=== PATIENT | male | born 1980 | race Caucasian/White ===

== ENCOUNTER 2016-09-27 19:49 | Emergency (ER) | payer MEDICAID ==
--- NOTE | 2016-09-27 20:56 | ER Document Report ---
ED General - General Mode of Arrival: Ambulatory Information source: Patient TRAVEL OUTSIDE OF THE [place] IN LAST 30 DAYS: No <ANNMARIE LUNDBERG - Last Filed: 09/27/16 23:08> <GRAEME JEAN - Last Filed: 09/28/16 00:32> - General Chief Complaint: Skin Problem Stated Complaint: POSSIBLE ABSCESS Time Seen by Provider: 09/27/16 20:30 Notes: Patient is a 36-year-old male who presents with hard lump in his right distal bicep that started 2 days ago. He endorses pain and swelling that has worsened since he first noticed it. He told the nurse he has a history of donating plasma but denies any IV drug use. He denies any fever, chills, chest pain, SOB , dyspnea on exertion, lower extremity edema or pain. He has no prior history of DVT/PE, is a smoker and denies any recent prolonged travel or surgeries. He has not tried any medication for this pain. No prior medical history, currently not taking any medications. (ANNMARIE LUNDBERG) - Related Data Allergies/Adverse Reactions: No Known Allergies Allergy (Verified 09/27/16 21:55) Past Medical History - General Information source: Patient - Social History Smoking Status: Current Every Day Smoker Chew tobacco use (# tins/day): No Frequency of alcohol use: Rare Drug Abuse: None Patient has suicidal ideation: No Patient has homicidal ideation: No - Past Medical History Cardiac Medical History: Denies: Hx Coronary Artery Disease, Hx Heart Attack, Hx Hypertension Pulmonary Medical History: Denies: Hx Asthma, Hx Bronchitis, Hx COPD, Hx Pneumonia Neurological Medical History: Denies: Hx Cerebrovascular Accident, Hx Seizures Renal/ Medical History: Denies: Hx Peritoneal Dialysis Musculoskeltal Medical History: Denies Hx Arthritis - Immunizations Hx Diphtheria, Pertussis, Tetanus Vaccination: Yes <ANNMARIE LUNDBERG - Last Filed: 09/27/16 23:08> - Social History Family History: Reviewed & Not Pertinent <GRAEME JEAN - Last Filed: 09/28/16 00:32> Review of Systems - Review of Systems Constitutional: See HPI EENT: No symptoms reported Cardiovascular: No symptoms reported Respiratory: No symptoms reported Gastrointestinal: No symptoms reported Genitourinary: No symptoms reported Male Genitourinary: No symptoms reported Musculoskeletal: See HPI Skin: See HPI Hematologic/Lymphatic: No symptoms reported Neurological/Psychological: No symptoms reported <MARLYN LUNDBERGISTEN - Last Filed: 09/27/16 23:08> Physical Exam <MARLYN LUNDBERGISTEN - Last Filed: 09/27/16 23:08> <GRAEME JEAN - Last Filed: 09/28/16 00:32> - Vital signs Vitals: Temp Pulse Resp BP Pulse Ox 97.9 F 65 18 121/75 98 09/27/16 20:07 09/27/16 20:07 09/27/16 20:07 09/27/16 20:07 09/27/16 20:07 - Notes Notes: PHYSICAL EXAM: CONSTITUTIONAL: Alert and oriented, well-appearing and in no acute distress. HENT: Normocephalic, atraumatic. Trachea midline. Uvula midline. Moist mucous membranes. EYES: Pupils equal round and reactive to light, EOM intact. Sclera anicteric, conjunctiva are normal. No entrapment. NECK: supple without lymphadenopathy. No midline tenderness or paraspinous muscle spasms. No step-offs or deformities. ROM intact. HEART: Regular rate and rhythm without murmurs. LUNGS: CTAB and equal. No wheezes, rales or rhonchi. GI: Normactive bowel sounds. Nontender, non-distended. No organomegaly. no CVAT. BACK: nontender, no paraspinous spasm, 5+/5 strengths, DTRs 2+, SLR -. EXTREMITIES: Right upper arm - tender palpable chord to left medial surface of bicep with warmth but no erythema. No streaking noted. Normal range of motion, no pitting edema. No cyanosis. Cap Refill <3 seconds. Distal pulses intact. NEURO: Cranial nerves grossly intact. Normal sensory/motor exams. PSYCH: Normal mood, normal affect. SKIN: Warm and dry. Normal turgor. No rashes or lesions noted. (ANNMARIE LUNDBERG) Course <MARLYN LUNDBERGISTEN - Last Filed: 09/27/16 23:08> <GRAEME JEAN - Last Filed: 09/28/16 00:32> - Re-evaluation Re-evalutation: 09/27/16 23:00 patient seen and examined. approximately 3 cm palpable chord with exquisite tenderness and warmth on exam without erythema. With history of plasma donation , concern for phlebitis vs lymphadenopathy vs SVT/DVT. Ordered venous doppler - results pending. 09/27/16 23:09 Discussed case and management to this point with Gloria Narvaez PERINATAL TECH in sign out at end of my shift. Patient updated and notified of plan. (ANNMARIE LUNDBERG) 09/28/16 00:31 Vascular Doppler showed a traumatic AV fistula. Dr. Gloria will follow up with the patient. Patient was discharged home with prescription for [place] dispense pack and instructions to follow-up with Dr. Gloria. He was also given a light duty work note until following up with surgery. 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 He will be discharged home with a small prescription for pain medicine and instructions to follow-up with Dr. Gloria a vascular surgeon. Oral Narcotic Medication You have been given a prescription for pain control. This medication is a narcotic. It's best taken with food, as nausea can result if taken on an empty stomach. Don't operate machinery or drive within six hours of taking this medication. Do not combine this medicine with alcohol, or with any medication which can cause sedation (such as cold tablets or sleeping pills) unless you get permission from the physician. Narcotics tend to cause constipation. If possible, drink plenty of fluids and eat a diet high in fiber and fruits. FOLLOW-UP CARE: If you have been referred to a physician for follow-up care, call the physician s office for an appointment as you were instructed or within the next two days. If you experience worsening or a significant change in your symptoms, notify the physician immediately or return to the Emergency Department at any time for re-evaluation. Prescriptions: Hydrocodone/Acetaminophen [[place] 5-325 mg Tablet] 1 tab PO Q6HP PRN #14 tablet PRN Reason: Forms: Special Work Note, Smoking Cessation Education Referrals: ALETHA JUAREZ MD [Primary Care Provider] - Follow up as needed MINA GLORIA MD [ACTIVE STAFF] - Follow up as needed
[2016-09-28] MEDS ORDERED: HYDROCODONE/ACETAMINOPHEN 5-325 MG 6 TAB/DSPK PO PRN (00:30)
[2016-09-28 00:38] VITALS: BP 127/91
--- NOTE | 2016-09-28 09:02 | XCELERA REPORT ---
[address] [address] Upper Extremity Venous Evaluation Name: ELIZ TORRES Age: 36 yrs Gender: Male : 1980 Patient Status: Emergency Patient Location: ER Study Date: 09/27/2016 10:21 PM Procedure: Unilateral duplex scan of the right upper extremity veins was performed, including responses to compression and other maneuvers. Reason For Study: r/o DVT, superficial VT Ordering Physician: ANNMARIE LUNDBERG PA-C Performed By: Anthony Craig Right Side Venous Evaluation No obstruction or thrombus in the right upper extremity veins. A thrombosed area, 1.3 cms, connecting by a 7mm neck with he Brachial. Also noted is arterialized pulsatile flow in the Basilic vein. Critical Findings D/W CHRISTEN Edward. Interpretation Summary Negative for DVT in the right upper extremity. 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 : ANNMARIE LUNDBERG PA-C > Jett Mota
== END 2016-09-28 00:36 | disposition home or self-care (01) ==
LOC: ER 19:49
DX: S45.891A Other specified injury of other specified blood vessels at shoulder and upper arm level, right arm, initial encounter (principal); L02.413 Cutaneous abscess of right upper limb; M79.89 Other specified soft tissue disorders; F17.200 Nicotine dependence, unspecified, uncomplicated; X58.XXXA Exposure to other specified factors, initial encounter
CPT/HCPCS: 93971; 99284

== ENCOUNTER 2017-02-03 11:34 | Emergency (ER) | payer MEDICAID ==
[2017-02-03] MEDS ORDERED: KETOROLAC TROMETHAMINE INJ/PF 30 MG/1 ML SDV IV ONE (11:58)
[2017-02-03] MEDS ORDERED: ONDANSETRON HCL INJ/PF 4 MG/2 ML SDV IV ONE (11:58)
[2017-02-03] MEDS ORDERED: MORPHINE SULFATE 10 MG/ML INJ IV ONE ×2 (11:58→14:11)
--- NOTE | 2017-02-03 11:58 | ER Document Report ---
ED Medical Screen (RME) - General Chief Complaint: Abdominal Pain Stated Complaint: ABDOMINAL PAIN Time Seen by Provider: 02/03/17 11:52 Notes: The patient is a 36-year-old male who presents with 1 week of diffuse abdominal pain and nausea, worse in the left upper quadrant, right upper quadrant and right lower quadrant. He is also having intermittent episodes of diarrhea and constipation. No prior abdominal surgeries. PE: Uncomfortable. Normal bowel sounds. Diffuse abdominal tenderness. I have greeted and performed a rapid initial assessment of this patient. A comprehensive ED assessment and evaluation of the patient, analysis of test results and completion of the medical decision making process will be conducted by additional ED providers. TRAVEL OUTSIDE OF THE [place] IN LAST 30 DAYS: No - Related Data Allergies/Adverse Reactions: No Known Allergies Allergy (Verified 02/03/17 11:42) Past Medical History - Social History Chew tobacco use (# tins/day): - 30 Frequency of alcohol use: None Drug Abuse: None - Past Medical History Cardiac Medical History: Denies: Hx Coronary Artery Disease, Hx Heart Attack, Hx Hypertension Pulmonary Medical History: Denies: Hx Asthma, Hx Bronchitis, Hx COPD, Hx Pneumonia Neurological Medical History: Denies: Hx Cerebrovascular Accident, Hx Seizures Renal/ Medical History: Denies: Hx Peritoneal Dialysis Musculoskeltal Medical History: Denies Hx Arthritis - Immunizations Hx Diphtheria, Pertussis, Tetanus Vaccination: Yes Physical Exam - Vital signs Vitals: Temp Pulse Resp BP Pulse Ox 98.6 F 68 16 136/88 H 97 02/03/17 11:40 02/03/17 11:40 02/03/17 11:40 02/03/17 11:40 02/03/17 11:40 Course - Vital Signs Vital signs: Temp Pulse Resp BP Pulse Ox 98.6 F 68 16 136/88 H 97 02/03/17 11:40 02/03/17 11:40 02/03/17 11:40 02/03/17 11:40 02/03/17 11:40
[2017-02-03 12:31] LABS: ABSOLUTE EOSINOPHILS # (AUTO) 0.1 10^3/uL (0.0-0.6); ABSOLUTE LYMPHOCYTES (AUTO) 1.6 10^3/uL (0.5-4.7); ABSOLUTE MONOCYTES (AUTO) 0.4 10^3/uL (0.1-1.4); ABSOLUTE NEUT (AUTO) 4.1 10^3/uL (1.7-8.2); BASOPHILS % (AUTO) 0.2 % (0-2); EOSINOPHILS % (AUTO) 1.1 % (0-6); HEMATOCRIT 41.7 % (37.9-51.0); HEMOGLOBIN 14.3 g/dL (13.5-17.0); HGB HCT DIFFERENCE 1.2; LYMPHOCYTES % (AUTO) 26.6 % (13-45); MEAN CORPUSCULAR HEMOGLOBIN 28.7 pg (27.0-33.4); MEAN CORPUSCULAR HGB CONC 34.4 g/dL (32.0-36.0); MEAN CORPUSCULAR VOLUME 84 fl (80-97); MONOCYTES % (AUTO) 6.2 % (3-13); RED CELL DISTRIBUTION WIDTH 14.5 % (11.5-14.0); SEGMENTED NEUTROPHILS % (AUTO) 65.9 % (42-78); WHITE BLOOD COUNT 6.2 10^3/uL (4.0-10.5)
[2017-02-03 12:58] LABS: ALANINE AMINOTRANSFERASE 56 U/L (21-72); ALBUMIN 3.5 g/dL (3.5-5.0); ALKALINE PHOSPHATASE 46 U/L (38-126); ANION GAP 8 (5-19); ASPARTATE AMINO TRANSFERASE 34 U/L (17-59); BILIRUBIN,DIRECT 0.4 mg/dL (0.0-0.4); BILIRUBIN,TOTAL 0.8 mg/dL (0.2-1.3); BLOOD UREA NITROGEN 14 mg/dL (7-20); CARBON DIOXIDE 27 mmol/L (22-30); CHLORIDE 106 mmol/L (98-107); CREATININE RESULT 0.87 mg/dL (0.52-1.25); GLUCOSE 95 mg/dL (75-110); LIPASE 105.6 U/L (23-300); POTASSIUM 3.9 mmol/L (3.6-5.0); SODIUM 140.6 mmol/L (137-145); TOTAL PROTEIN 5.7 g/dL (6.3-8.2)
--- NOTE | 2017-02-03 13:23 | ER Document Report ---
ED GI/ - General Chief Complaint: Abdominal Pain Stated Complaint: ABDOMINAL PAIN Time Seen by Provider: 02/03/17 11:52 Mode of Arrival: Ambulatory Information source: Patient Notes: 36-year-old male who presents today with the onset around 5 days ago of some upper and lower abdominal pain. He states it is constant, radiates to his back , nausea without vomiting, without fevers. Patient states it is mostly to the lower abdomen region at this time. He denies any testicular pain. He states the pain is equal to both sides. He denies any chest pain, cough, or shortness of breath. Denies any dark urine or dysuria. TRAVEL OUTSIDE OF THE [place] IN LAST 30 DAYS: No - HPI Patient complains to provider of: Abdominal pain Onset: Other - See above Timing/Duration: Better Quality of pain: Achy Severity at maximum: Moderate Severity in ED: Mild Pain Level: 1 Location: Other - See above Sexual history: Active Associated symptoms: Other - See above Exacerbated by: Denies Relieved by: Denies Similar symptoms previously: No Recently seen / treated by doctor: No - Related Data Allergies/Adverse Reactions: No Known Allergies Allergy (Verified 02/03/17 11:42) Past Medical History - General Information source: Patient - Social History Smoking Status: Current Every Day Smoker Cigarette use (# per day): No Chew tobacco use (# tins/day): No - 30 Smoking Education Provided: No Frequency of alcohol use: None Drug Abuse: None Family History: Reviewed & Not Pertinent Patient has suicidal ideation: No Patient has homicidal ideation: No - Past Medical History Cardiac Medical History: Denies: Hx Coronary Artery Disease, Hx Heart Attack, Hx Hypertension Pulmonary Medical History: Denies: Hx Asthma, Hx Bronchitis, Hx COPD, Hx Pneumonia Neurological Medical History: Denies: Hx Cerebrovascular Accident, Hx Seizures Renal/ Medical History: Denies: Hx Peritoneal Dialysis Musculoskeltal Medical History: Denies Hx Arthritis - Immunizations Hx Diphtheria, Pertussis, Tetanus Vaccination: Yes Review of Systems - Review of Systems Constitutional: denies: Fever EENT: denies: Eye discharge, Nose discharge Cardiovascular: denies: Chest pain, Palpitations Respiratory: denies: Short of breath Gastrointestinal: denies: Vomiting Genitourinary: denies: Dysuria Musculoskeletal: denies: Leg swelling Skin: Other - no hives. denies: Rash Neurological/Psychological: Other - no slurred speech -: Yes All other systems reviewed and negative Physical Exam - Vital signs Vitals: Temp Pulse Resp BP Pulse Ox 98.6 F 68 16 136/88 H 97 02/03/17 11:40 02/03/17 11:40 02/03/17 11:40 02/03/17 11:40 02/03/17 11:40 Notes: Reviewed vital signs and nursing note as charted by RN. CONSTITUTIONAL: Alert and oriented and responds appropriately to questions. Well -appearing; well-nourished HEAD: Normocephalic; atraumatic EYES: Sclerae non-icteric NECK: Supple without meningismus; non-tender; no cervical lymphadenopathy, no masses CARD: Regular rate and rhythm; no murmurs RESP: Normal chest excursion without splinting or tachypnea; breath sounds clear and equal bilaterally ABD/GI: Normal bowel sounds; non-distended; soft, mildly tender to palpation to bilateral lower quadrants of the abdomen without rebound or guarding. No palpable masses present GI/: Patient has no Inguinal masses, testicular pain or swelling, or scrotal erythema BACK: The back appears normal and is non-tender to palpation, there is no CVA tenderness EXT: Normal ROM in all joints; non-tender to palpation; no cyanosis, no effusions, no edema SKIN: Normal color for age and race; warm; dry; good turgor; capillary refill < 2 seconds; no acute lesions noted NEURO: Moves all extremities equally; Motor and sensory function intact PSYCH: The patient's mood and manner are appropriate. Grooming and personal hygiene are appropriate. Course - Re-evaluation Re-evalutation: 02/03/17 13:25 Given the history and physical examination we will obtain basic labs, liver panel, lipase, urinalysis, and a CT scan of the abdomen and pelvis. I would like to evaluate for possible acute intra-abdominal process such as pancreatitis , cholelithiasis, or appendicitis. I do believe kidney stones to be less likely at this time. Patient has a history of irritable bowel syndrome. 02/03/17 14:42 Labs as recorded. Pain is improved. 02/03/17 16:52 CT scan as recorded. Given the above labs, history, and CT scan report, with improved pain on examination, I believe that the patient will require an endoscopy in the near future for possible gastritis/gastric ulcer/duodenal ulcer. Strict return precautions have been explained. Patient will be started on Prilosec and a short course of pain medications. - Vital Signs Vital signs: Temp Pulse Resp BP Pulse Ox 98.6 F 68 16 136/88 H 97 02/03/17 11:40 02/03/17 11:40 02/03/17 11:40 02/03/17 11:40 02/03/17 11:40 - Laboratory Result Diagrams: 02/03/17 12:05 02/03/17 12:05 Laboratory results interpreted by me: 02/03/17 02/03/17 12:05 12:05 RDW 14.5 H Total Protein 5.7 L Discharge - Discharge Clinical Impression: Epigastric abdominal pain Condition: Good Disposition: HOME, SELF-CARE Additional Instructions: Come back immediately with any increased pain, change in quality or location of pain, fevers or vomiting, or any other acute problems. Please follow-up with the steam turbine operator as we have discussed and take prilosec as we have discussed. Prescriptions: Hydrocodone/Acetaminophen [[place] 5-325 Tablet] 1 each PO Q6 PRN #12 tablet PRN Reason: For Pain Referrals: ALETHA JUAREZ MD [Primary Care Provider] - Follow up as needed VANDANA ROSAS MD [ACTIVE STAFF] - Follow up as needed
[2017-02-03 13:25] LABS: APPEARANCE,URINE CLEAR; BILIRUBIN,URINE NEGATIVE (NEGATIVE); GLUCOSE, URINE NEGATIVE (NEGATIVE); KETONES,URINE NEGATIVE (NEGATIVE); LEUKOCYTE ESTERASE,URINE NEGATIVE (NEGATIVE); NITRITE,URINE NEGATIVE (NEGATIVE); PROTEIN,URINE NEGATIVE (NEGATIVE); URINE SPECIFIC GRAVITY 1.014; UROBILINOGEN,URINE NEGATIVE mg/dL (<2.0)
--- NOTE | 2017-02-03 14:39 | RADIOLOGY REPORT (SQ) ---
EXAM DESCRIPTION: CT ABD/PELVIS WITH IV ONLY COMPLETED DATE/TIME: 02/03/2017 1:56 pm REASON FOR STUDY: diffuse abdominal pain, worse in RLQ COMPARISON: None. TECHNIQUE: CT scan of the abdomen and pelvis performed using helical scanning technique with dynamic intravenous contrast injection. No oral contrast. Images reviewed with lung, soft tissue, and bone windows. Reconstructed coronal and sagittal MPR images reviewed. Delayed images for evaluation of the urinary system also acquired. All images stored on PACS. All CT scanners at this facility use dose modulation, iterative reconstruction, and/or weight based d osing when appropriate to reduce radiation dose to as low as reasonably achievable (ALARA). [facility]: Dose Right [facility]: CareDose [facility]: Dose Right [facility]: Teradose 4D [facility]: Paragon 28 CONTRAST TYPE AND DOSE: contrast/concentration: Isovue 370.00 mg/ml; Total Contrast Delivered: 95.0 ml; Total Saline Delivered: 71.0 ml RENAL FUNCTION: Creatinine 0.9 BUN 14 RADIATION DOSE: Up-to-date CT equipment and radiation dose reduction techniques were employed. CTDIv ol: 9.7 - 14.1 mGy. DLP: 1358 mGy-cm.. LIMITATIONS: None. FINDINGS: LOWER CHEST: No significant findings. No nodules or infiltrates. LIVER: Normal size. No masses. No dilated ducts. SPLEEN: Normal size. No focal lesions. PANCREAS: No masses. No significant calcifications. No adjacent inflammation or peripancreatic fluid collections. Pancreatic duct not dilated. GALLBLADDER: No identified stones by CT criteria. No inflammatory changes to suggest cholecystitis. ADRENAL GLANDS: No significant masses or asymmetry. RIGHT KIDNEY AND URETER: No solid masses. No significant calcifications. No hydronephrosis or hyd roureter. LEFT KIDNEY AND URETER: No solid masses. No significant calcifications. No hydronephrosis or hydr oureter. AORTA AND VESSELS: No aneurysm. No dissection. Renal arteries, SMA, celiac without stenosis. RETROPERITONEUM: No retroperitoneal adenopathy, hemorrhage or masses. BOWEL AND PERITONEAL CAVITY: No masses or inflammatory changes. No free fluid or peritoneal masses. APPENDIX: Normal. PELVIS: No mass. No free fluid. Normal bladder. ABDOMINAL WALL: No masses. No hernias. BONES: No significant or acute findings. OTHER: No other significant finding. IMPRESSION: NO SIGNIFICANT OR ACUTE FINDING IN THE ABDOMEN OR PELVIS ON CT SCAN WITH IV CONTRAST. TECHNICAL DOCUMENTATION: JOB ID: [id number] Quality ID # [id number]: Final reports with documentation of one or more dose reduction techniques (e.g., Au tomated exposure control, adjustment of the mA and/or kV according to patient size, use of iterative reconstruction technique) 2010 [employer]- All Rights Reserved
[2017-02-03] MEDS ORDERED: MAG HYDROX/AL HYDROX/SIMETH SUSP 30 ML UDCUP PO ONE (16:52)
[2017-02-03] MEDS ORDERED: LIDOCAINE 2% VISCOUS SOLN 20 ML UDCUP PO ONE (16:52)
[2017-02-03] MEDS ORDERED: METOCLOPRAMIDE HCL ORAL SOLN 10 MG/10 ML UDCUP PO ONE (16:52)
[2017-02-03 17:20] VITALS: BP 124/88
== END 2017-02-03 17:17 | disposition home or self-care (01) ==
LOC: ER 11:34
DX: R10.13 Epigastric pain (principal); R10.30 Lower abdominal pain, unspecified; R11.0 Nausea; F17.200 Nicotine dependence, unspecified, uncomplicated
CPT/HCPCS: 96376; 99284; 96374; 96375; 36415; 83690; 85025; 80053; 81001; 74177; J3490 ×3; J1885; J2270; J2405

== ENCOUNTER 2017-02-16 09:17 | Day surgery (SDC) | payer MEDICAID ==
[2017-02-16] MEDS ORDERED: NALOXONE HCL INJ/PF 0.4 MG/1 ML SDV ONE (09:38)
[2017-02-16] MEDS ORDERED: DIPHENHYDRAMINE HCL 50 MG/ML VIAL ONE (09:38)
[2017-02-16] MEDS ORDERED: ONDANSETRON HCL INJ/PF 4 MG/2 ML SDV ONE (09:38)
[2017-02-16] MEDS ORDERED: MIDAZOLAM 2 MG/2 ML INJ ONE (09:40)
[2017-02-16] MEDS ORDERED: FENTANYL CITRATE INJ/PF 100 MCG/2 ML AMPUL ONE (09:40)
[2017-02-16] MEDS ORDERED: FLUMAZENIL INJ 0.5 MG/5 ML VIAL ONE (09:41)
[2017-02-16] MEDS ORDERED: GLUCAGON,HUMAN RECOMB 1 MG INJ ONE (09:41)
[2017-02-16] MEDS ORDERED: EPINEPHRINE INJ 1 MG/10 ML DISP.SYRIN ONE (09:41)
[2017-02-16] MEDS: MIDAZOLAM 2 MG/2 ML INJ ONE ×2 (10:11→10:14)
[2017-02-16] MEDS: FENTANYL CITRATE INJ/PF 100 MCG/2 ML AMPUL ONE ×2 (10:13→10:16)
[2017-02-16 11:28] VITALS: BP 117/62
--- NOTE | 2017-02-16 12:29 | Operative Report ---
Operative Report DATE OF SURGERY: 02/16/17 Operative Report: The risks benefits and alternatives of the procedure explained to the patient in detail and informed consent is obtained.A GIF Olympus video scope was inserted into the patient's mouth and hypopharynx, the esophagus is identified intubated and insufflated ,the scope was then advanced through the esophagus stomach and duodenum, retroflexion maneuver is done, the esophagus stomach and first and second portions of the duodenum examined PREOPERATIVE DIAGNOSIS: Epigastric pain POSTOPERATIVE DIAGNOSIS: Gastritis, duodenitis, esophagitis. Biopsies obtained to rule out Helicobacter pylori OPERATION: EGD with biopsy SURGEON: VANDANA ROSAS ANESTHESIA: Moderate Sedation - 4 mg of Versed, 100 mcg of fentanyl. Conscious sedation monitoring time 30 minutes. TISSUE REMOVED OR ALTERED: Gastric mucosal specimen obtained rule out Helicobacter pylori COMPLICATIONS: None. ESTIMATED BLOOD LOSS: None. INTRAOPERATIVE FINDINGS: As noted above. PROCEDURE: Patient tolerated procedure well. No immediate postprocedure complications are noted. Patient discharged in good condition. Discharge date 02/16/2017. Discharge diet: Regular. Discharge activity: Regular. 2-3 week follow-up to discuss findings. Patient is instructed to call the office or proceed to the emergency room should there be any further problems or questions. May need gallbladder workup. We will await pathology.
== END 2017-02-16 11:30 | disposition home or self-care (01) ==
LOC: END 09:17
PROVIDERS: ATTEND Internal Medicine Gastroenterology
PROC: 0DB68ZX Excision of Stomach, Via Natural or Artificial Opening Endoscopic, Diagnostic (ICD-10-PCS; principal; 2017-02-16 09:30)
DX: K29.70 Gastritis, unspecified, without bleeding (principal); K29.80 Duodenitis without bleeding; F17.210 Nicotine dependence, cigarettes, uncomplicated; Z79.899 Other long term (current) drug therapy
CPT/HCPCS: 43239; 88342 ×2; 88305 ×2; J2250; J3010; J0171; J1200; J1610; J2310; J2405; J3490

== ENCOUNTER 2017-02-17 11:21 | Emergency (ER) | payer MEDICAID ==
[2017-02-17] MEDS ORDERED: NORMAL SALINE 1000 ML 1,000 ML IV ONE (12:00)
[2017-02-17] MEDS ORDERED: ONDANSETRON HCL INJ/PF 4 MG/2 ML SDV IV ONE (12:00)
[2017-02-17] MEDS ORDERED: HYDROMORPHONE HCL INJ/PF 2 MG/ML AMPULE IV ONE (12:00)
--- NOTE | 2017-02-17 12:04 | ER Document Report ---
ED Medical Screen (RME) - General Chief Complaint: Abdominal Pain Stated Complaint: STOMACH PAIN Time Seen by Provider: 02/17/17 11:56 Mode of Arrival: Ambulatory Information source: Patient TRAVEL OUTSIDE OF THE [place] IN LAST 30 DAYS: No - HPI Onset: Other - FEW WEEKS Onset/Duration: Constant, Worse - YESTERDAY Context: HAD EGD & Bx YESTERDAY, PER DR. LOTT. Quality of pain: Dull Severity: Severe Associated Symptoms: Dizzy/lightheaded, Nausea, Vomiting. denies: Chills, Fever Exacerbated by: Denies Relieved by: Denies Similar symptoms previously: No Recently seen / treated by doctor: Yes - Related Data Allergies/Adverse Reactions: No Known Allergies Allergy (Verified 02/17/17 11:22) Past Medical History - General Information source: Patient - Past Medical History Cardiac Medical History: Denies: Hx Coronary Artery Disease, Hx Heart Attack, Hx Hypertension Pulmonary Medical History: Denies: Hx Asthma, Hx Bronchitis, Hx COPD, Hx Pneumonia Neurological Medical History: Denies: Hx Cerebrovascular Accident, Hx Seizures Renal/ Medical History: Denies: Hx Peritoneal Dialysis Musculoskeltal Medical History: Denies Hx Arthritis Surgical Hx: Negative - Immunizations Hx Diphtheria, Pertussis, Tetanus Vaccination: Yes Review of Systems - Review of Systems Constitutional: See HPI Cardiovascular: No symptoms reported Respiratory: No symptoms reported Gastrointestinal: See HPI Physical Exam - Vital signs Vitals: Temp Pulse Resp BP Pulse Ox 97.9 F 66 20 140/97 H 99 02/17/17 11:27 02/17/17 11:27 02/17/17 11:27 02/17/17 11:27 02/17/17 11:27 Interpretation: Hypertensive. No: Tachycardic, Tachypneic, Febrile - General General appearance: Alert. No: Appears well - APEARS TO BE IN SIGNIFICANT PAIN - Respiratory Respiratory status: No respiratory distress - Skin Skin Temperature: Warm Skin Moisture: Dry Skin Color: Normal Skin Turgor: Elastic Course - Vital Signs Vital signs: Temp Pulse Resp BP Pulse Ox 97.9 F 66 20 140/97 H 99 02/17/17 11:27 02/17/17 11:27 02/17/17 11:27 02/17/17 11:27 02/17/17 11:27
[2017-02-17 12:57] LABS: ABSOLUTE EOSINOPHILS # (AUTO) 0.1 10^3/uL (0.0-0.6); ABSOLUTE LYMPHOCYTES (AUTO) 1.4 10^3/uL (0.5-4.7); ABSOLUTE MONOCYTES (AUTO) 0.5 10^3/uL (0.1-1.4); ABSOLUTE NEUT (AUTO) 4.8 10^3/uL (1.7-8.2); BASOPHILS % (AUTO) 0.2 % (0-2); HEMATOCRIT 45.5 % (37.9-51.0); HEMOGLOBIN 16.1 g/dL (13.5-17.0); HGB HCT DIFFERENCE 2.8; LYMPHOCYTES % (AUTO) 20.2 % (13-45); MEAN CORPUSCULAR HEMOGLOBIN 29.6 pg (27.0-33.4); MEAN CORPUSCULAR HGB CONC 35.3 g/dL (32.0-36.0); MEAN CORPUSCULAR VOLUME 84 fl (80-97); MONOCYTES % (AUTO) 7.7 % (3-13); RED BLOOD COUNT 5.43 10^6/uL (4.35-5.55); RED CELL DISTRIBUTION WIDTH 14.4 % (11.5-14.0); SEGMENTED NEUTROPHILS % (AUTO) 70.9 % (42-78); WHITE BLOOD COUNT 6.7 10^3/uL (4.0-10.5)
[2017-02-17 12:59] LABS: APPEARANCE,URINE CLEAR; BILIRUBIN,URINE NEGATIVE (NEGATIVE); GLUCOSE, URINE NEGATIVE (NEGATIVE); KETONES,URINE NEGATIVE (NEGATIVE); LEUKOCYTE ESTERASE,URINE NEGATIVE (NEGATIVE); NITRITE,URINE NEGATIVE (NEGATIVE); PROTEIN,URINE NEGATIVE (NEGATIVE); UROBILINOGEN,URINE NEGATIVE mg/dL (<2.0)
[2017-02-17 13:32] LABS: ALANINE AMINOTRANSFERASE 51 U/L (21-72); ALBUMIN 3.9 g/dL (3.5-5.0); ALKALINE PHOSPHATASE 55 U/L (38-126); ANION GAP 10 (5-19); ASPARTATE AMINO TRANSFERASE 26 U/L (17-59); BILIRUBIN,DIRECT 0.4 mg/dL (0.0-0.4); BILIRUBIN,TOTAL 0.8 mg/dL (0.2-1.3); BLOOD UREA NITROGEN 11 mg/dL (7-20); CALCIUM 9.2 mg/dL (8.4-10.2); CARBON DIOXIDE 25 mmol/L (22-30); CHLORIDE 104 mmol/L (98-107); GLUCOSE 90 mg/dL (75-110); LIPASE 180.5 U/L (23-300); POTASSIUM 4.2 mmol/L (3.6-5.0); TOTAL PROTEIN 6.3 g/dL (6.3-8.2)
--- NOTE | 2017-02-17 13:43 | RADIOLOGY REPORT (SQ) ---
EXAM DESCRIPTION: ACUTE ABDOMEN SERIES COMPLETED DATE/TIME: 02/17/2017 1:31 pm REASON FOR STUDY: ABD PAIN, INCREASED SINCE EGD YESTERDAY COMPARISON: None. NUMBER OF VIEWS: Three views. TECHNIQUE: Frontal chest, supine abdomen and upright/decubitus abdomen radiographic images acquired. LIMITATIONS: None. FINDINGS: CHEST: Lungs clear of infiltrates. FREE AIR: None. No abnormal gas collections. BOWEL GAS PATTERN: Nonobstructive pattern. No dilated loops or air fluid levels. CALCIFICATIONS: No suspicious calcifications. HARDWARE: None in the abdomen. SOFT TISSUES: No gross mass or suggestion of organomegaly. BONES: No acute fracture. No worrisome bone lesions. OTHER: No other significant finding. IMPRESSION: NO RADIOGRAPHIC EVIDENCE FOR ACUTE ABDOMINAL DISEASE. TECHNICAL DOCUMENTATION: JOB ID: [id number] [employer]- All Rights Reserved
--- NOTE | 2017-02-17 14:03 | ER Document Report ---
ED GI/ - General Chief Complaint: Abdominal Pain Stated Complaint: STOMACH PAIN Time Seen by Provider: 02/17/17 11:56 Mode of Arrival: Ambulatory Information source: Patient, Relative TRAVEL OUTSIDE OF THE [place] IN LAST 30 DAYS: No - HPI Patient complains to provider of: Abdominal pain, Vomiting Onset: Yesterday Timing/Duration: Gradual Quality of pain: Dull Severity at maximum: Severe Severity in ED: Moderate Pain Level: 5 Context: Other Location: Epigastric, LLQ, RLQ Associated symptoms: Loss of appetite, Nausea, Radiates to back, Vomiting. denies: Blood in stool, Chest pain, Chills, Constipation, Diarrhea, Fever Exacerbated by: Movement Similar symptoms previously: Yes Recently seen / treated by doctor: Yes - Patient was seen yesterday by Dr. Rosas had an endoscopy. Notes: 02/17/17 14:03 Patient's endoscopy revealed gastritis, biopsies were sent to rule out H pylori are still pending. Patient was discharged home from endoscopy without any new medications. He was told to follow-up with Dr. Rosas but cannot recall the date but states it is noted at home on his discharge papers. 02/17/17 15:37 - Related Data Allergies/Adverse Reactions: No Known Allergies Allergy (Verified 02/17/17 11:22) Past Medical History - General Information source: Patient, Relative - Social History Smoking Status: Current Every Day Smoker Cigarette use (# per day): Yes Chew tobacco use (# tins/day): No Smoking Education Provided: Yes Frequency of alcohol use: None Drug Abuse: None Lives with: Family Family History: Reviewed & Not Pertinent Patient has suicidal ideation: No Patient has homicidal ideation: No - Medical History Medical History: Other Notes: Patient states he has intermittent migraines - Past Medical History Cardiac Medical History: Denies: Hx Coronary Artery Disease, Hx Heart Attack, Hx Hypertension Pulmonary Medical History: Denies: Hx Asthma, Hx Bronchitis, Hx COPD, Hx Pneumonia EENT Medical History: Reports: None Neurological Medical History: Denies: Hx Cerebrovascular Accident, Hx Seizures Endocrine Medical History: Denies: Hx Diabetes Mellitus Type 1, Hx Diabetes Mellitus Type 2, Hx Graves' Disease Renal/ Medical History: Denies: Hx Peritoneal Dialysis Musculoskeltal Medical History: Denies Hx Arthritis Psychiatric Medical History: Reports: None Traumatic Medical History: Reports: None Infectious Medical History: Reports: None Surgical Hx: Negative Past Surgical History: Denies: Hx Abdominal Surgery - Immunizations Hx Diphtheria, Pertussis, Tetanus Vaccination: Yes Review of Systems - Review of Systems Constitutional: No symptoms reported EENT: No symptoms reported Cardiovascular: No symptoms reported Respiratory: No symptoms reported Gastrointestinal: See HPI, Nausea, Vomiting Genitourinary: No symptoms reported Male Genitourinary: No symptoms reported Musculoskeletal: No symptoms reported Skin: No symptoms reported Hematologic/Lymphatic: No symptoms reported Neurological/Psychological: No symptoms reported Physical Exam - Vital signs Vitals: Temp Pulse Resp BP Pulse Ox 97.9 F 66 20 140/97 H 99 02/17/17 11:27 02/17/17 11:27 02/17/17 11:27 02/17/17 11:27 02/17/17 11:27 Interpretation: Normal - Notes Notes: PHYSICAL EXAMINATION: GENERAL: Well-appearing, well-nourished and in no acute distress. HEAD: Atraumatic, normocephalic. EYES: Pupils equal round extraocular movements intact, conjunctiva are normal. ENT: Nares patent NECK: Normal range of motion LUNGS: No respiratory distress Abdominal exam: Positive bowel sounds no distention patient has mild diffuse abdominal tenderness. No rebound rigidity or guarding. No focal right upper quadrant tenderness. Musculoskeletal: Normal range of motion NEUROLOGICAL: Normal speech, normal gait. PSYCH: Normal mood, normal affect. SKIN: Warm, Dry, normal turgor, no rashes or lesions noted. Course - Re-evaluation Re-evalutation: 02/17/17 14:27 Patient is still experiencing some discomfort. He states he is still nauseous. Phenergan was ordered 02/17/17 15:33 Patient states his nausea has decreased. He states that his abdominal pain is better. He is questioning why he has had this abdominal pain for the last few months. I did review with him the findings on his endoscopy. And that he is also waiting for his H. pylori results. I did review with him that I talked to Dr. Rosas and we will start him on a proton pump inhibitor patient and his were instructed that patient should return to the emergency department if he has increased abdominal pain, fever, increased vomiting or any other concerns. I did speak with the patient regarding smoking sensation. states that she is 3 weeks and so the patient has to stop smoking. She states he is allowed to finish the pack that he has bought and then he has to be done. Patient states he is going to try and stop smoking. She was instructed to follow-up with Dr. Rosas within the next week. - Vital Signs Vital signs: Temp Pulse Resp BP Pulse Ox 97.9 F 66 20 140/97 H 99 02/17/17 11:27 02/17/17 11:27 02/17/17 11:27 02/17/17 11:27 02/17/17 11:27 - Laboratory Result Diagrams: 02/17/17 12:30 02/17/17 12:30 Laboratory results interpreted by me: 02/17/17 12:30 RDW 14.4 H - Diagnostic Test Radiology reviewed: Image reviewed, Reports reviewed Radiology results interpreted by me: 02/17/17 14:29 No acute abnormalities found on abdominal series - Consults Dr. Rosas Time consulted: 02:05 - Did speak with Dr. Rosas. He stated that he would do an outpatient ultrasound and HIDA scan to evaluate the gallbladder. Patient does not have increased LFTs nor does he have point right upper quadrant tenderness. He denies the use of alcohol. Reason for consultation: 02/17/17 15:11 Abdominal pain recent endoscopy Consulted provider: follow-up in office Discharge - Discharge Clinical Impression: Gastritis Condition: Stable Disposition: HOME, SELF-CARE Instructions: Abdominal Pain ([facility]) Additional Instructions: As we discussed , return to the ED immediately if you have fevers increased vomiting abdominal distention or increased pain. Prescriptions: Pantoprazole Sodium [Protonix] 40 mg PO DAILY #14 tablet.dr Forms: Smoking Cessation Education Referrals: ALETHA JUAREZ MD [Primary Care Provider] - Follow up as needed VANDANA ROSAS MD [ACTIVE STAFF] - Follow up in 3-5 days
[2017-02-17] MEDS ORDERED: PROMETHAZINE HCL INJ 25 MG/1 ML VIAL IM ONE (14:19)
[2017-02-17] MEDS ORDERED: SUCRALFATE SUSP 1 GM/10 ML UDCUP PO ONE (14:45)
[2017-02-17] MEDS ORDERED: PANTOPRAZOLE SODIUM 40 MG VIAL IV ONE (15:06)
[2017-02-17 15:45] VITALS: BP 142/97
== END 2017-02-17 15:45 | disposition home or self-care (01) ==
LOC: ER 11:21
DX: R10.9 Unspecified abdominal pain (principal); R63.0 Anorexia; M54.9 Dorsalgia, unspecified; R11.2 Nausea with vomiting, unspecified
CPT/HCPCS: 99284; 96372; 96361; 96374; 96375; 36415; 83690; 85025; 80053; 81001; 74022; J1170; S0164; J3490; J2550; J2405; J7030

== ENCOUNTER 2017-04-30 16:03 | Emergency (ER) | payer MEDICAID ==
[2017-04-30 16:24] VITALS: BP 137/89
== END 2017-04-30 16:27 | disposition left against medical advice (07) ==
LOC: ER 16:03
DX: Z53.21 Procedure and treatment not carried out due to patient leaving prior to being seen by health care provider (principal); M25.519 Pain in unspecified shoulder

== ENCOUNTER 2017-09-01 07:17 | Emergency (ER) | payer OTHER, MEDICAID ==
[2017-09-01] MEDS ORDERED: IBUPROFEN 600 MG TABLET PO ONE (07:32)
[2017-09-01] MEDS ORDERED: HYDROCODONE/ACETAMINOPHEN 5-325 MG TABLET PO ONE (07:32)
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
[2017-09-01 08:54] VITALS: BP 163/102
== END 2017-09-01 08:53 | disposition home or self-care (01) ==
LOC: ER 07:17
DX: S40.022A Contusion of left upper arm, initial encounter (principal); M79.632 Pain in left forearm; F17.210 Nicotine dependence, cigarettes, uncomplicated; V09.9XXA Pedestrian injured in unspecified transport accident, initial encounter; Y92.410 Unspecified street and highway as the place of occurrence of the external cause
CPT/HCPCS: 99406; 99283; 73070; 73090; 73130; L3908

== ENCOUNTER 2018-01-03 22:48 | Emergency (ER) | payer MEDICAID, OTHER ==
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
[2018-01-03 23:35] VITALS: BP 119/86
[2018-01-04] MEDS ORDERED: HYDROCODONE/ACETAMINOPHEN 5-325 MG (6 TAB/ER DISP) PO PRN (01:01)
--- NOTE | 2018-01-04 01:02 | ER Document Report ---
ED Hand/Wrist Injury - General Chief Complaint: Hand Injury Stated Complaint: RIGHT HAND INJURY Time Seen by Provider: 01/04/18 00:35 Mode of Arrival: Ambulatory Information source: Patient Notes: 37-year-old male presents to ED for complaint of pain and swelling to the right hand. He states he got angry at his son and hit a wall rather than his son. He states this happened around 8:00 tonight. Patient alert and oriented respirations regular and unlabored speaking in full sentences walking with a even steady gait. TRAVEL OUTSIDE OF THE [place] IN LAST 30 DAYS: No - HPI Injury to: Hand Onset: This evening Where: Home, Indoors Timing: Still present Quality of pain: Achy, Sharp, Throbbing Severity: Moderate Pain Level: 4 Context: Blow, Swelling - Related Data Allergies/Adverse Reactions: No Known Allergies Allergy (Verified 04/30/17 16:06) Past Medical History - General Information source: Patient - Social History Smoking Status: Current Every Day Smoker Cigarette use (# per day): Yes - 1.5 ppd Chew tobacco use (# tins/day): No Smoking Education Provided: Yes - 4 min Frequency of alcohol use: Rare - Patient states once a year r Drug Abuse: None Occupation: Dishwashing Machine Operator Lives with: Family Family History: Reviewed & Not Pertinent Patient has suicidal ideation: No Patient has homicidal ideation: No - Past Medical History Cardiac Medical History: Reports: None Pulmonary Medical History: Reports: None EENT Medical History: Reports: None Neurological Medical History: Reports: None Endocrine Medical History: Reports: None Renal/ Medical History: Reports: None Malignancy Medical History: Reports None GI Medical History: Reports: None Musculoskeletal Medical History: Reports Hx Musculoskeletal Trauma Skin Medical History: Reports None Psychiatric Medical History: Reports: None Traumatic Medical History: Reports: Hx Fractures - Right hand right leg right arm right wrist Infectious Medical History: Reports: None Surgical Hx: Negative Past Surgical History: Reports: None - Immunizations Hx Diphtheria, Pertussis, Tetanus Vaccination: Yes Review of Systems - Review of Systems Constitutional: No symptoms reported EENT: No symptoms reported Cardiovascular: No symptoms reported Respiratory: No symptoms reported Gastrointestinal: No symptoms reported Genitourinary: No symptoms reported Male Genitourinary: No symptoms reported Musculoskeletal: Other - Pain swelling bruising to the right lateral hand from fourth and fifth finger to the wrist with swelling to the fifth and fourth finger Skin: No symptoms reported Hematologic/Lymphatic: No symptoms reported Neurological/Psychological: No symptoms reported -: Yes All other systems reviewed and negative Physical Exam - Vital signs Vitals: Temp Pulse Resp BP Pulse Ox 97.8 F 74 16 119/86 H 97 01/03/18 23:33 01/03/18 23:33 01/03/18 23:33 01/03/18 23:33 01/03/18 23:33 Interpretation: Normal - General General appearance: Appears well, Alert - HEENT Head: Normocephalic, Atraumatic Eyes: Normal Pupils: PERRL - Respiratory Respiratory status: No respiratory distress Chest status: Nontender Breath sounds: Normal Chest palpation: Normal - Cardiovascular Rhythm: Regular Heart sounds: Normal auscultation Murmur: No - Abdominal Inspection: Normal Distension: No distension Bowel sounds: Normal Tenderness: Nontender Organomegaly: No organomegaly - Back Back: Normal, Nontender - Extremities General upper extremity: Normal ROM, Normal temperature General lower extremity: Normal inspection, Nontender, Normal color, Normal ROM , Normal temperature, Normal weight bearing. No: Vickey's sign Wrist: Tender, Ecchymosis. No: Abrasion, Axial load of thumb pain, Dislocation , Instability, Laceration, Limited ROM, Navicular tenderness, Other Hand: Tender, Ecchymosis, No evidence of human bite, No evidence of FB, Swelling , Other - Good cap refills able to move all fingers. No: Abrasion, Deformity, Dislocation, Instability, Laceration, Nail injury, Tendon deficit - Neurological Neuro grossly intact: Yes Cognition: Normal Orientation: AAOx4 Gretchen Coma Scale Eye Opening: Spontaneous [place] Coma Scale Verbal: Oriented [place] Coma Scale Motor: Obeys Commands Gretchen Coma Scale Total: 15 Speech: Normal Motor strength normal: LUE, RUE, LLE, RLE Sensory: Normal - Psychological Associated symptoms: Normal affect, Normal mood - Skin Skin Temperature: Warm Skin Moisture: Dry Skin Color: Normal Course - Vital Signs Vital signs: Temp Pulse Resp BP Pulse Ox 97.8 F 74 16 119/86 H 97 01/03/18 23:33 01/03/18 23:33 01/03/18 23:33 01/03/18 23:33 01/03/18 23:33 - Diagnostic Test Radiology reviewed: Image reviewed, Reports reviewed Procedures - Immobilization Right Hand Time completed: 01:30 Pre-Proc Neuro Vasc Exam: Normal Immobilizer type: Ulnar Performed by: PCT Post-Proc Neuro Vasc Exam: Normal Alignment checked and good: Yes Notes: 01/04/18 02:06 Patient refused sling that he had one at home Discharge - Discharge Clinical Impression: Closed fracture of 5th metacarpal Qualifiers: Encounter type: initial encounter Metacarpal location: unspecified portion of metacarpal Fracture alignment: displaced Laterality: right Qualified Code(s): S62.306A - Unspecified fracture of fifth metacarpal bone, right hand, initial encounter for closed fracture Condition: Stable Disposition: HOME, SELF-CARE Additional Instructions: Fractured Fifth Metacarpal (Boxer's) You have a fracture of the fifth metacarpal bone in the hand, often called a Boxer's Fracture. The fracture is usually caused by striking the knuckle against a hard surface -- such as hitting a wall with the fist. This fracture heals well. Some degree of angle in the fracture is perfectly acceptable, resulting in only a slightly rounder knuckle. Your physician has determined whether your fracture could benefit from "setting", and has outlined a treatment plan for you. The usual treatment is splinting for four to six weeks -- a cast is not usually necessary. At first, the injury should be elevated and ice packed. Contact the doctor at once if swelling or pain becomes severe, or if numbness develops. Splint Pending Casting Your injury can't be casted until the swelling has subsided. Therefore, a temporary splint has been placed to protect the injury. Full use of an injured area is not possible in a splint. You should follow the doctor's instructions concerning rest, ice, and elevation of the injury. Never do anything which causes pain under the splint. Keep the splint on ALL THE TIME until you return for casting. If there is unexpected severe pain, or numbness, discoloration, or swelling beyond the splint, you should return at once. ICE & ELEVATION: Apply ice packs frequently against the painful area. Many different schedules are recommended, such as "20 minutes on, 20 minutes off" or "one hour ice, two hours rest." If you need to work, you may need to go longer between ice treatments. You should plan to have the area ice packed AT LEAST one- fourth of the time. The ice should be applied over the wrap, tape, or splint, or over a layer of cloth -- not directly against the skin. Some ice bags have a built-in cloth and can be put directly on the skin. Your injured part should be elevated as much as possible over the next 48 hours. Try to keep the injury above the level of the heart. Avoid use of the injured area. Elevation and rest will decrease the swelling. USE OF [id number] IBUPROFEN: Ibuprofen (Advil, Nuprin, Medipren, Motrin IB) is a medication for fever and pain control. In addition, it has anti- inflammatory effects which may be beneficial, especially in the treatment of injuries. It's best to take ibuprofen with food. Persons with ulcer disease or allergy to aspirin should notify their physician of this before taking ibuprofen. Ibuprofen can be given every four to six hours, for a total of four doses daily. Age Pain or fever dose Antiinflammatory dose 6-8 yr 200 mg (1 tab) 200 mg (1 tab) 9-11 yr 200 mg (1 tab) 200-400 mg (1-2 tab) 11-14 yr 200-400 mg (1-2 tab) 400 mg (2 tab) 15-adult 400 mg (2 tab) 600 mg (3 tab) ORAL NARCOTIC MEDICATION: You have been given a norco dispsense pack for pain control. This medication is a narcotic. It's best taken with food, as nausea can result if taken on an empty stomach. Don't operate machinery or drive within six hours of taking this medication. Do not combine this medicine with alcohol, or with any medication which can cause sedation (such as cold tablets or sleeping pills) unless you get permission from the physician. Narcotics tend to cause constipation. If possible, drink plenty of fluids and eat a diet high in fiber and fruits. Please be aware that prescription narcotics also have the potential for abuse. People become addicted to these medications because of the general sense of wellbeing that they induce. This feeling along with a significant reduction in tension, anxiety, and aggression provides a stimulating seductive quality to these drugs. Once your pain is under control, we encourage you to discard your unused narcotics. FOLLOW-UP CARE: If you have been referred to a physician for follow-up care, call the physician s office for an appointment as you were instructed or within the next two days. If you experience worsening or a significant change in your symptoms, notify the physician immediately or return to the Emergency Department at any time for re-evaluation. Call your local family law specialist that you are used to using tomorrow for follow-up for this fracture. Forms: Smoking Cessation Education, Return to Work Referrals: ALETHA JUAREZ MD [Primary Care Provider] - Follow up as needed
== END 2018-01-04 01:37 | disposition home or self-care (01) ==
LOC: ER 22:48
DX: S62.306A Unspecified fracture of fifth metacarpal bone, right hand, initial encounter for closed fracture (principal); W22.01XA Walked into wall, initial encounter; Y92.009 Unspecified place in unspecified non-institutional (private) residence as the place of occurrence of the external cause; F17.210 Nicotine dependence, cigarettes, uncomplicated; Z71.6 Tobacco abuse counseling
CPT/HCPCS: 99283; 99406

== ENCOUNTER 2018-03-21 15:05 | Emergency (ER) | payer MEDICAID ==
--- NOTE | 2018-03-21 15:41 | ER Document Report ---
ED Medical Screen (RME) - General Chief Complaint: Suicidal Ideation Stated Complaint: SI Time Seen by Provider: 03/21/18 15:39 Mode of Arrival: Ambulatory Information source: Patient Notes: Patient presents reporting suicidal ideation. EMS sheet reports that patient recently lost his job and has been threatening to hang himself or to cut his throat with a knife. Patient does report previous inpatient treatment after suicidal ideation in 2010 in [place]. Patient denies any history of mental health issues. I have greeted and performed a rapid initial assessment of this patient. A comprehensive ED assessment and evaluation of the patient, analysis of test results and completion of the medical decision making process will be conducted by additional ED providers. TRAVEL OUTSIDE OF THE [place] IN LAST 30 DAYS: No - Related Data Allergies/Adverse Reactions: No Known Allergies Allergy (Verified 04/30/17 16:06) Past Medical History - Past Medical History Cardiac Medical History: Denies: Hx Coronary Artery Disease, Hx Heart Attack, Hx Hypertension Pulmonary Medical History: Denies: Hx Asthma, Hx Bronchitis, Hx COPD, Hx Pneumonia Neurological Medical History: Denies: Hx Cerebrovascular Accident, Hx Seizures Endocrine Medical History: Denies: Hx Diabetes Mellitus Type 1, Hx Diabetes Mellitus Type 2, Hx Graves' Disease Renal/ Medical History: Denies: Hx Peritoneal Dialysis Musculoskeltal Medical History: Denies Hx Arthritis, Reports Hx Musculoskeletal Trauma Traumatic Medical History: Reports: Hx Fractures - Right hand right leg right arm right wrist Past Surgical History: Denies: Hx Abdominal Surgery - Immunizations Hx Diphtheria, Pertussis, Tetanus Vaccination: Yes Physical Exam - Vital signs Vitals: Temp Pulse Resp BP Pulse Ox 98.7 F 73 16 120/82 94 03/21/18 15:13 03/21/18 15:13 03/21/18 15:13 03/21/18 15:13 03/21/18 15:13 - Psychological Associated symptoms: Flat affect, Other - Suicidal ideation Course - Vital Signs Vital signs: Temp Pulse Resp BP Pulse Ox 98.7 F 73 16 120/82 94 03/21/18 15:13 03/21/18 15:13 03/21/18 15:13 03/21/18 15:13 03/21/18 15:13 Doctor's Discharge - Discharge Referrals: ALETHA JUAREZ MD [Primary Care Provider] - Follow up as needed
[2018-03-21 15:58] LABS: APPEARANCE,URINE CLEAR; BILIRUBIN,URINE NEGATIVE (NEGATIVE); COLOR,URINE YELLOW; GLUCOSE, URINE NEGATIVE (NEGATIVE); KETONES,URINE NEGATIVE (NEGATIVE); LEUKOCYTE ESTERASE,URINE NEGATIVE (NEGATIVE); NITRITE,URINE NEGATIVE (NEGATIVE); PROTEIN,URINE NEGATIVE (NEGATIVE); URINE SPECIFIC GRAVITY 1.012; UROBILINOGEN,URINE NEGATIVE mg/dL (<2.0)
[2018-03-21 16:09] LABS: URINE AMPHETAMINES SCREEN NEGATIVE; URINE BARBITURATES SCREEN NEGATIVE; URINE BENZODIAZEPINES SCREEN NEGATIVE; URINE COCAINE SCREEN NEGATIVE; URINE MARIJUANA (THC) SCREEN UNCONFIRMED POSITIVE; URINE METHADONE SCREEN NEGATIVE; URINE PHENCYCLIDINE SCREEN NEGATIVE
--- NOTE | 2018-03-21 16:10 | ER Document Report ---
Addendum entered and electronically signed by ROSELYN CERNA DO 03/22/18 17:42: Discharge - Discharge Clinical Impression: anxiety Condition: Stable Disposition: HOME, SELF-CARE Additional Instructions: You have been evaluated both medical and behavioral health teams and been deemed appropriate for discharge. You have been provided a prescription for Zyprexa 5 mg twice daily Cogentin 1 mg daily; please take as directed. You are can fo llow-up with your outpatient mental health provider, Iggy. You have been provided contact information for [facility] for continued assistance with obtaining services. DEPRESSION: Your evaluation reveals that you have mental depression. While symptoms may be vague, they often include disturbance of sleep, fatigue, loss of appetite, and general loss of interest in life. While depression may be a side effect of drugs, or a reaction to a major change in your life, many cases have no known cause. If depression is acute, and related to a major loss in your life, you can expect it to clear completely with time. If you have been depressed a long time, are prone to repeated bouts of depression or low mood, or have been thinking of suicide, get help. Depression can be treated with anti-depressant medication and counselling. Long-term depression will often take a few weeks to clear, even with appropriate medication. Follow-up care is important. SUICIDAL IDEATION: Suicidal ideation is a common medical term for thoughts about suicide, which may be as detailed as a formulated plan, without the suicidal act itself. Although most people who undergo suicidal ideation do not commit suicide, some go on to make suicide attempts. The range of suicidal ideation varies greatly from fleeting to detailed planning, role playing, and unsuccessful attempts. While thoughts about suicide are common, most people do not carry out serious actions to commit suicide. Based upon your evaluation and discussion with you, we do not believe you are currently at risk to act upon your thoughts of suicide. You have agreed to return to the Emergency Department, at any time, if you feel inclined to act upon your suicidal thoughts. Anxiety The physician feels that some of your health problems are being caused by anxiety. Anxiety affects your health in many ways. Anxiety alone can cause palpitations, sweats, chest pains, abdominal pains, shortness of breath, and headaches. It contributes to ulcer disease, high blood pressure, irritable bowel syndrome, and has been shown to cause flare-ups of many other diseases. Anxiety is not a simple disorder to treat. If the anxiety is due to recent life stresses, you may simply need time to "work through" the changes. If the anxiety is due to an underlying unhappiness with yourself or due to psychiatric disturbance, professional help will be needed. Your physician can refer you for further help if needed. Anti-anxiety medication is occasionally given if the stress is acute or if you are having trouble sleeping. Chronic or frequent use of these medications is not a good idea because the body becomes reliant on it, preventing you from dealing with life's normal stresses.You have been evaluated and assessed at [facility] by both the medical and behavioral health team after presenting with suicidal ideation and are now deemed appropriate for discharge. While you were in the ED, you received an initial medical screening, lab work, EKG, direct staff observation, clinical evaluation, physician assessments, and outpatient resources for follow up. You were cleared for both services and encouraged to follow through with your outpatient mental health provider, LONNIE for medication management and therapeutic services. You are also encourage to utilize [facility] mobile crisis services as needed. FOLLOW-UP CARE: If you experience worsening or a significant change in your symptoms, notify the physician immediately or return to the Emergency Department at any time for re-evaluation. Prescriptions: Benztropine Mesylate [Cogentin 1 mg Tablet] 1 tab PO DAILY #7 tab Olanzapine [Zyprexa 5 mg Tablet] 5 mg PO Q12 #14 tablet Referrals: Lonnie Arellano PA [Provider Group] - Follow up as needed [facility] Crisis Team [Outside] - Follow up as needed ALETHA JUAREZ MD [Primary Care Provider] - Follow up as needed Addendum entered and electronically signed by WALESKA LEE LCSWA 03/22/18 15:17: Discharge - Discharge Clinical Impression: anxiety Condition: Stable Disposition: HOME, SELF-CARE Additional Instructions: You have been evaluated both medical and behavioral health teams and been deemed appropriate for discharge. You have been provided a prescription for Zyprexa 5 mg twice daily Cogentin 1 mg daily; please take as directed. You are can follow-up with your outpatient mental health provider, [facility] [place]. You have been provided contact information for [facility] mobile crisis for continued assistance with obtaining services. DEPRESSION: Your evaluation reveals that you have mental depression. While symptoms may be vague, they often include disturbance of sleep, fatigue, loss of appetite, and general loss of interest in life. While depression may be a side effect of drugs, or a reaction to a major change in your life, many cases have no known cause. If depression is acute, and related to a major loss in your life, you can expect it to clear completely with time. If you have been depressed a long time, are prone to repeated bouts of depression or low mood, or have been thinking of suicide, get help. Depression can be treated with anti-depressant medication and counselling. Long-term depression will often take a few weeks to clear, even with appropriate medication. Follow-up care is important. SUICIDAL IDEATION: Suicidal ideation is a common medical term for thoughts about suicide, whic h may be as detailed as a formulated plan, without the suicidal act itself. Although most people who undergo suicidal ideation do not commit suicide, some go on to make suicide attempts. The range of suicidal ideation varies greatly from fleeting to detailed planning, role playing, and unsuccessful attempts. While thoughts about suicide are common, most people do not carry out serious actions to commit suicide. Based upon your evaluation and discussion with you, we do not believe you are currently at risk to act upon your thoughts of suicide. You have agreed to return to the Emergency Department, at any time, if you feel inclined to act upon your suicidal thoughts. Anxiety The physician feels that some of your health problems are being caused by anxiety. Anxiety affects your health in many ways. Anxiety alone can cause palpitations, sweats, chest pains, abdominal pains, shortness of breath, and headaches. It contributes to ulcer disease, high blood pressure, irritable bowel syndrome, and has been shown to cause flare-ups of many other diseases. Anxiety is not a simple disorder to treat. If the anxiety is due to recent life stresses, you may simply need time to "work through" the changes. If the anxiety is due to an underlying unhappiness with yourself or due to psychiatric disturbance, professional help will be needed. Your physician can refer you for further help if needed. Anti-anxiety medication is occasionally given if the stress is acute or if you are having trouble sleeping. Chronic or frequent use of these medications is not a good idea because the body becomes reliant on it, preventing you from dealing with life's normal stresses.You have been evaluated and assessed at [facility] by both the medical and behavioral health team after presenting with suicidal ideation and are now deemed appropriate for discharge. While you were in the ED, you received an initial medical screening, lab work, EKG, direct staff observation, clinical evaluation, physician assessments, and outpatient resources for follow up. You were cleared for both services and encouraged to follow through with your outpatient mental health provider, LONNIE for medication management and therapeutic services. You are also encourage to utilize [facility] mobile crisis services as needed. FOLLOW-UP CARE: If you experience worsening or a significant change in your symptoms, notify the physician immediately or return to the Emergency Department at any time for re- evaluation. Referrals: Lonnie Arellano PA [Provider Group] - Follow up as needed ALETHA JUAREZ MD [Primary Care Provider] - Follow up as needed [facility] [Outside] - Follow up as needed Addendum entered and electronically signed by OPHELIA MATTHEW MD 03/21/18 18:49: Course - Re-evaluation Re-evalutation: 03/21/18 18:49 Behavioral health recommending zyprexa and cogentin. Orders placed. Behavioral health to re-evaluate tomorrow. - Vital Signs Vital signs: Temp Pulse Resp BP Pulse Ox 98.7 F 73 16 120/82 94 03/21/18 15:13 03/21/18 15:13 03/21/18 15:13 03/21/18 15:13 03/21/18 15:13 - Laboratory Result Diagrams: 03/21/18 15:52 03/21/18 15:52 Laboratory results interpreted by me: 03/21/18 03/21/18 15:52 15:52 RDW 14.1 H Total Protein 6.2 L Salicylates < 1.0 L Acetaminophen < 10 L Addendum entered and electronically signed by ANABELLA IVY LPCA 03/21/18 18:01: Discharge - Discharge Clinical Impression: anxiety Condition: Stable Disposition: HOME, SELF-CARE Additional Instructions: SUICIDAL IDEATION: Suicidal ideation is a common medical term for thoughts about suicide, which may be as detailed as a formulated plan, without the suicidal act itself. Although most people who undergo suicidal ideation do not commit suicide, some go on to make suicide attempts. The range of suicidal ideation varies greatly from fleeting to detailed planning, role playing, and unsuccessful attempts. While thoughts about suicide are common, most people do not carry out serious actions to commit suicide. Based upon your evaluation and discussion with you, we do not believe you are currently at risk to act upon your thoughts of suicide. You have agreed to return to the Emergency Department, at any time, if you feel inclined to act upon your suicidal thoughts. FOLLOW-UP CARE: If you have been referred to a physician for follow-up care, call the physicians office for an appointment as you were instructed or within the next two days. If you experience worsening or a significant change in your symptoms, notify the physician immediately or return to the Emergency Department at any time for re-evaluation. Suicidal Ideation Suicidal ideation is a common medical term for thoughts about suicide, which may be as detailed as a formulated plan, without the suicidal act itself. Although most people who undergo suicidal ideation do not commit suicide, some go on to make suicide attempts. The range of suicidal ideation varies greatly from fleeting to detailed planning, role playing, and unsuccessful attempts. While thoughts about suicide are common, most people do not carry out serious actions to commit suicide. However, based upon your evalutation and discussion with you, we believe you are currently at risk to act upon your thoughts of suicide. Therefore, you will be admitted to a facility for in patient care. Anxiety The physician feels that some of your health problems are being caused by anxiety. Anxiety affects your health in many ways. Anxiety alone can cause palpitations, sweats, chest pains, abdominal pains, shortness of breath, and headaches. It contributes to ulcer disease, high blood pressure, irritable bowel syndrome, and has been shown to cause flare-ups of many other diseases. Anxiety is not a simple disorder to treat. If the anxiety is due to recent life stresses, you may simply need time to "work through" the changes. If the anxiety is due to an underlying unhappiness with yourself or due to psychiatric disturbance, professional help will be needed. Your physician can refer you for further help if needed. Anti-anxiety medication is occasionally given if the stress is acute or if you are having trouble sleeping. Chronic or frequent use of these medications is not a good idea because the body becomes reliant on it, preventing you from dealing with life's normal stresses.You have been evaluated and assessed at [facility] by both the medical and behavioral health team after presenting with suicidal ideation and are now deemed appropriate for discharge. While you were in the ED, you received an initial medical screening, lab work, EKG, direct staff observation, clinical evaluation, physician assessments, and outpatient resources for follow up. You were cleared for both services and encouraged to follow through with your outpatient mental health provider, LONNIE for medication management and therapeutic services. You are also encourage to utilize [facility] mobile crisis services as needed. Referrals: ALETHA JUAREZ MD [Primary Care Provider] - Follow up as needed Lonnie MEADOWS [Provider Group] - Follow up as needed Original Note: ED General - General Chief Complaint: Suicidal Ideation Stated Complaint: SI Time Seen by Provider: 03/21/18 15:39 Mode of Arrival: Ambulatory Information source: Patient Notes: 37-year-old male presents emergency department reporting suicidal ideation. Patient states that he has been considering hanging himself or cutting his throat with a knife. Patient states that he recently lost his job. He states that he was fine yesterday but today he feels like he is losing it. Patient states that he has had previous suicidal ideations in 2010. He states that he was placed inpatient. He states that he was not discharged on any medication. He states that he went to counseling and it helps for him. Patient denies any homicidal ideations, delusions, hallucinations. TRAVEL OUTSIDE OF THE [place] IN LAST 30 DAYS: No - HPI Onset: Just prior to arrival Onset/Duration: Sudden Quality of pain: No pain Severity: None Pain Level: Denies Associated symptoms: None Exacerbated by: Denies Relieved by: Denies Similar symptoms previously: Yes Recently seen / treated by doctor: No - Related Data Allergies/Adverse Reactions: No Known Allergies Allergy (Verified 04/30/17 16:06) Past Medical History - General Information source: Patient - Social History Smoking Status: Current Every Day Smoker Chew tobacco use (# tins/day): No Frequency of alcohol use: None Drug Abuse: None Family History: Reviewed & Not Pertinent Patient has suicidal ideation: No Patient has homicidal ideation: No - Past Medical History Cardiac Medical History: Denies: Hx Coronary Artery Disease, Hx Heart Attack, Hx Hypertension Pulmonary Medical History: Denies: Hx Asthma, Hx Bronchitis, Hx COPD, Hx Pneumonia Neurological Medical History: Denies: Hx Cerebrovascular Accident, Hx Seizures Endocrine Medical History: Denies: Hx Diabetes Mellitus Type 1, Hx Diabetes Mellitus Type 2, Hx Graves' Disease Renal/ Medical History: Denies: Hx Peritoneal Dialysis Musculoskeletal Medical History: Denies Hx Arthritis, Reports Hx Musculoskeletal Trauma Traumatic Medical History: Reports: Hx Fractures - Right hand right leg right arm right wrist Past Surgical History: Denies: Hx Abdominal Surgery - Immunizations Hx Diphtheria, Pertussis, Tetanus Vaccination: Yes Review of Systems - Review of Systems Constitutional: No symptoms reported EENT: No symptoms reported Cardiovascular: No symptoms reported Gastrointestinal: No symptoms reported Genitourinary: No symptoms reported Musculoskeletal: No symptoms reported Skin: No symptoms reported Hematologic/Lymphatic: No symptoms reported Neurological/Psychological: Suicidal ideation Physical Exam - Vital signs Vitals: Temp Pulse Resp BP Pulse Ox 98.7 F 73 16 120/82 94 03/21/18 15:13 03/21/18 15:13 03/21/18 15:13 03/21/18 15:13 03/21/18 15:13 - General Notes: PHYSICAL EXAMINATION: GENERAL: Well-appearing, well-nourished and in no acute distress. HEAD: Atraumatic, normocephalic. EYES: Pupils equal round and reactive to light, extraocular movements intact, sclera anicteric, conjunctiva are normal. ENT: Nares patent, oropharynx clear without exudates. Moist mucous membranes. NECK: Normal range of motion, supple without lymphadenopathy LUNGS: Breath sounds clear to auscultation bilaterally and equal. No wheezes rales or rhonchi. HEART: Regular rate and rhythm without murmurs ABDOMEN: Soft, nontender, nondistended abdomen. No guarding, no rebound. No masses appreciated. Musculoskeletal: Normal range of motion, no pitting or edema. No cyanosis. NEUROLOGICAL: Cranial nerves grossly intact. Normal speech, normal gait. Normal sensory, motor exams PSYCH: Tearful. Patient does express suicidal ideations. SKIN: Warm, Dry, normal turgor, no rashes or lesions noted. Course - Re-evaluation Re-evalutation: 03/21/18 16:12 EKG: Ventricular rate 64, MN interval 172, castration 86, QTc 417, sinus rhythm. No ST segment elevation or depression. 03/21/18 17:23 Patient's drug screen is positive for marijuana. Patient is medically cleared to be evaluated by behavioral health. 03/21/18 17:24 - Vital Signs Vital signs: Temp Pulse Resp BP Pulse Ox 98.7 F 73 16 120/82 94 03/21/18 15:13 03/21/18 15:13 03/21/18 15:13 03/21/18 15:13 03/21/18 15:13 - Laboratory Result Diagrams: 03/21/18 15:52 03/21/18 15:52 Laboratory results interpreted by me: 03/21/18 03/21/18 15:52 15:52 RDW 14.1 H Total Protein 6.2 L Salicylates < 1.0 L Acetaminophen < 10 L Discharge - Discharge Referrals: ALETHA JUAREZ MD [Primary Care Provider] - Follow up as needed
[2018-03-21 16:13] LABS: ABSOLUTE LYMPHOCYTES (AUTO) 1.2 10^3/uL (0.5-4.7); ABSOLUTE MONOCYTES (AUTO) 0.7 10^3/uL (0.1-1.4); ABSOLUTE NEUT (AUTO) 6.8 10^3/uL (1.7-8.2); BASOPHILS % (AUTO) 0.2 % (0-2); EOSINOPHILS % (AUTO) 0.4 % (0-6); HEMATOCRIT 45.2 % (37.9-51.0); HEMOGLOBIN 15.7 g/dL (13.5-17.0); LYMPHOCYTES % (AUTO) 14.1 % (13-45); MEAN CORPUSCULAR HEMOGLOBIN 29.2 pg (27.0-33.4); MEAN CORPUSCULAR HGB CONC 34.7 g/dL (32.0-36.0); MEAN CORPUSCULAR VOLUME 84 fl (80-97); MONOCYTES % (AUTO) 7.7 % (3-13); PLATELET COUNT 172 10^3/uL (150-450); RED BLOOD COUNT 5.36 10^6/uL (4.35-5.55); RED CELL DISTRIBUTION WIDTH 14.1 % (11.5-14.0); SEGMENTED NEUTROPHILS % (AUTO) 77.6 % (42-78); TOTAL CELLS COUNTED % (AUTO) 100 %; WHITE BLOOD COUNT 8.8 10^3/uL (4.0-10.5)
[2018-03-21 16:32] LABS: ALANINE AMINOTRANSFERASE 60 U/L (21-72); ALBUMIN 3.8 g/dL (3.5-5.0); ALKALINE PHOSPHATASE 46 U/L (38-126); ANION GAP 8 (5-19); ASPARTATE AMINO TRANSFERASE 37 U/L (17-59); BILIRUBIN,DIRECT 0.2 mg/dL (0.0-0.4); BILIRUBIN,TOTAL 0.9 mg/dL (0.2-1.3); BLOOD UREA NITROGEN 13 mg/dL (7-20); CALCIUM 9.1 mg/dL (8.4-10.2); CARBON DIOXIDE 27 mmol/L (22-30); CHLORIDE 106 mmol/L (98-107); GLUCOSE 92 mg/dL (75-110); POTASSIUM 3.8 mmol/L (3.6-5.0); SODIUM 140.6 mmol/L (137-145); TOTAL PROTEIN 6.2 g/dL (6.3-8.2)
[2018-03-21 16:46] LABS: ACETAMINOPHEN < 10 ug/mL (10-30); ALCOHOL < 10 mg/dL (NONE DETECTED); SALICYLATE < 1.0 mg/dL (2.0-20.0)
--- NOTE | 2018-03-21 18:48 | PSYCHOLOGICAL NOTE ---
Psych Note - Psych Note Psych Note: Impression/Plan: Recommendation is to IVC for risk of harm to self as patient is endorsing SI with plan to stabilize on medication and evaluate at a later time. Medication recommendations as per psychiatric provider are as follows: Zyprexa 5mg BID Cogentin 1mg QD
[2018-03-21] MEDS ORDERED: BENZTROPINE MESYLATE 1 MG TABLET PO ONE (19:04)
[2018-03-21] MEDS ORDERED: OLANZAPINE 5 MG TABLET PO ONE (19:05)
--- NOTE | 2018-03-21 19:47 | EKG REPORT ---
SEVERITY:- NORMAL ECG - SINUS RHYTHM : Confirmed by: Elodia Velazquez MD 21-Mar-2018 19:47:25
[2018-03-22] MEDS ORDERED: BENZTROPINE MESYLATE 1 MG TABLET PO SCH ×2 (10:00→18:43)
[2018-03-22] MEDS ORDERED: OLANZAPINE 5 MG TAB.RAPDIS PO SCH (10:00)
--- NOTE | 2018-03-22 10:34 | ER Document Report ---
Doctor's Note Notes: 03/22/18 10:32 Patient seen and evaluated. He is anxious and just got off the phone with his . He states when he talks to his she feels very concerned and anxious. He states she has had multiple miscarriages in the past and is in the early stages of . He is hopeful that this will stick and he wants to be a father. He states that his suicidal ideation stems from feeling underappreciated. He has recently lost his job and states his often does not appreciate what he does for her at home. He has other family members including nieces and nephews and siblings that he wants to be around for. He denies feeling like he wants to be but has had thoughts recently of cutting his throat. He states he has had inpatient treatment in the past which helped him. He is resistant to starting new medications stating he does not want to feel drugged or sleepy. He states if he can get on a medicine that will help with the mood swings without making him feel drugged he is open to that. He also states he wants to get back in the meditating which had recently given him some relief of his anxiety. Patient did receive Zyprexa and Cogentin yesterday which she states helped but has not completely alleviated his symptoms. Further disposition pending psych eval this morning.
[2018-03-22 15:20] VITALS: BP 134/79
[2018-03-22] MEDS ORDERED: OLANZAPINE 5 MG TABLET PO SCH (18:43)
--- NOTE | 2018-03-31 10:15 | PSYCHOLOGICAL NOTE ---
Psych Note - Psych Note Date seen by psych provider: 03/22/18 Time seen by psych provider: 08:10 Psych Note: Reason for consult: Suicidal ideation 37-year-old male presents emergency department reporting suicidal ideation. Patient states that he has been considering hanging himself or cutting his throat with a knife. Conducted check in with patient Patient reports that he is feeling "much better." He reports he is no longer having thoughts of wanting to harm himself or others. He reports that he does not like fighting with his and feels that if it continues he is just going to leave the relationship. He plans to return home. Patient reports having an appointment with carlie [facility]. Clinician contacted patient's she agrees to come to [facility] to meet with patient and clinician. Patient gives consent to include his as part of plan of care. Patient's at bedside per patient's request. She discloses she has no concerns with the patient returning home. She reports that she just wanted him to get on medications because of the difficulties he is been experiencing. She reports that she does not fear the patient and confirms she will be part of the patient's plan of care i.e. ensure the patient does not have access to med ications weapons and follows through with mental health recommendations. Medication recommendations per [facility]'s contracted psychiatrist Dr. Jesús MODI are as follows Zyprexa 5 mg twice daily Cogentin 1 mg daily Diagnosis Marital discord 311 (3 2.9) unspecified depressive disorder Impression/Plan: Patient is recommended for rescind of IVC and is cleared from acute psychiatric services. Patient no longer meets IVC criteria per [place] GS 122C. Patient endorses passive suicidal ideation i.e. no plans means or intent upon arrival however denies current thoughts of harming to himself or others. Patient admits that marital discord has been his stressor. Patient's came to meet with clinician and patient and reports she did be like to be part of the patient's plan of care i.e. and no access to medications and weapons and follows through with mental health recommendations. She reports she does not have any concerns of the patient returning home at this time. Patient has a an appointm ent with carlie [facility]. Medication recommendations have been provided. Patient is recommended to follow through with the appointment for both medication management and therapeutic intervention. Dr. Ayers was consulted and the care management this patient; attending physicians in agreement with recommendations and disposition.
== END 2018-03-22 17:57 | disposition home or self-care (01) ==
LOC: ER 15:05
DX: F41.9 Anxiety disorder, unspecified (principal); R45.851 Suicidal ideations; F17.200 Nicotine dependence, unspecified, uncomplicated
CPT/HCPCS: 93005; 99285; 36415; 80307 ×4; 85025; 80053; 81001; 93010; J3490 ×4

== ENCOUNTER 2018-04-09 16:44 | Emergency (ER) | payer MEDICAID, OTHER ==
[2018-04-09 16:50] VITALS: BP 167/97
--- NOTE | 2018-04-09 16:58 | ER Document Report ---
ED Medical Screen (RME) - General Chief Complaint: Psych Problem Stated Complaint: PSYCH EVAL Time Seen by Provider: 04/09/18 16:53 Mode of Arrival: Ambulatory TRAVEL OUTSIDE OF THE [place] IN LAST 30 DAYS: No - HPI Patient complains to provider of: psych issues Onset: This morning - pt with h/o anxiety and SI ran out of meds recently. Is having increased anxiety and thoughts of hurting himself - Related Data Allergies/Adverse Reactions: No Known Allergies Allergy (Verified 04/30/17 16:06) Past Medical History - Past Medical History Cardiac Medical History: Denies: Hx Coronary Artery Disease, Hx Heart Attack, Hx Hypertension Pulmonary Medical History: Denies: Hx Asthma, Hx Bronchitis, Hx COPD, Hx Pneumonia Neurological Medical History: Denies: Hx Cerebrovascular Accident, Hx Seizures Endocrine Medical History: Denies: Hx Diabetes Mellitus Type 1, Hx Diabetes Mellitus Type 2, Hx Graves' Disease Renal/ Medical History: Denies: Hx Peritoneal Dialysis Musculoskeltal Medical History: Denies Hx Arthritis, Reports Hx Musculoskeletal Trauma Traumatic Medical History: Reports: Hx Fractures - Right hand right leg right arm right wrist Past Surgical History: Denies: Hx Abdominal Surgery - Immunizations Hx Diphtheria, Pertussis, Tetanus Vaccination: Yes Physical Exam - Vital signs Vitals: Temp Pulse Resp BP Pulse Ox 98.3 F 65 16 157/107 H 96 04/09/18 16:49 04/09/18 16:49 04/09/18 16:49 04/09/18 16:49 04/09/18 16:49 Course - Vital Signs Vital signs: Temp Pulse Resp BP Pulse Ox 98.3 F 65 16 157/107 H 96 04/09/18 16:49 04/09/18 16:49 04/09/18 16:49 04/09/18 16:49 04/09/18 16:49 Doctor's Discharge - Discharge Referrals: ALETHA JUAREZ MD [Primary Care Provider] - Follow up as needed
[2018-04-09 17:36] LABS: ABSOLUTE EOSINOPHILS # (AUTO) 0.1 10^3/uL (0.0-0.6); ABSOLUTE LYMPHOCYTES (AUTO) 1.5 10^3/uL (0.5-4.7); ABSOLUTE MONOCYTES (AUTO) 0.7 10^3/uL (0.1-1.4); ABSOLUTE NEUT (AUTO) 5.9 10^3/uL (1.7-8.2); ALANINE AMINOTRANSFERASE 125 U/L (21-72); ALBUMIN 3.8 g/dL (3.5-5.0); ALKALINE PHOSPHATASE 56 U/L (38-126); ANION GAP 6 (5-19); ASPARTATE AMINO TRANSFERASE 62 U/L (17-59); BASOPHILS % (AUTO) 0.2 % (0-2); BILIRUBIN,DIRECT 0.1 mg/dL (0.0-0.4); BILIRUBIN,TOTAL 0.4 mg/dL (0.2-1.3); BLOOD UREA NITROGEN 13 mg/dL (7-20); CALCIUM 9.3 mg/dL (8.4-10.2); CARBON DIOXIDE 30 mmol/L (22-30); CHLORIDE 103 mmol/L (98-107); EOSINOPHILS % (AUTO) 1.3 % (0-6); GLUCOSE 91 mg/dL (75-110); HEMATOCRIT 43.9 % (37.9-51.0); HEMOGLOBIN 15.5 g/dL (13.5-17.0); LYMPHOCYTES % (AUTO) 18.2 % (13-45); MEAN CORPUSCULAR HEMOGLOBIN 30.1 pg (27.0-33.4); MEAN CORPUSCULAR HGB CONC 35.4 g/dL (32.0-36.0); MEAN CORPUSCULAR VOLUME 85 fl (80-97); MONOCYTES % (AUTO) 8.1 % (3-13); PLATELET COUNT 188 10^3/uL (150-450); POTASSIUM 4.1 mmol/L (3.6-5.0); RED BLOOD COUNT 5.17 10^6/uL (4.35-5.55); RED CELL DISTRIBUTION WIDTH 14.3 % (11.5-14.0); SEGMENTED NEUTROPHILS % (AUTO) 72.2 % (42-78); SODIUM 138.9 mmol/L (137-145); TOTAL CELLS COUNTED % (AUTO) 100 %; TOTAL PROTEIN 5.8 g/dL (6.3-8.2); WHITE BLOOD COUNT 8.1 10^3/uL (4.0-10.5)
[2018-04-09 17:37] LABS: ALCOHOL < 10 mg/dL (NONE DETECTED)
[2018-04-09] MEDS ORDERED: OLANZAPINE 5 MG TABLET PO ONE (17:49)
[2018-04-09] MEDS ORDERED: BENZTROPINE MESYLATE 1 MG TABLET PO ONE (17:49)
[2018-04-09 17:56] LABS: APPEARANCE,URINE CLEAR; BILIRUBIN,URINE NEGATIVE (NEGATIVE); COLOR,URINE YELLOW; GLUCOSE, URINE NEGATIVE (NEGATIVE); KETONES,URINE NEGATIVE (NEGATIVE); LEUKOCYTE ESTERASE,URINE NEGATIVE (NEGATIVE); NITRITE,URINE NEGATIVE (NEGATIVE); PROTEIN,URINE NEGATIVE (NEGATIVE); URINE SPECIFIC GRAVITY 1.011; UROBILINOGEN,URINE NEGATIVE mg/dL (<2.0)
[2018-04-09 18:05] LABS: ACETAMINOPHEN < 10 ug/mL (10-30); SALICYLATE < 1.0 mg/dL (2.0-20.0)
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
[2018-04-09 18:16] LABS: URINE AMPHETAMINES SCREEN NEGATIVE; URINE BARBITURATES SCREEN NEGATIVE; URINE BENZODIAZEPINES SCREEN NEGATIVE; URINE COCAINE SCREEN NEGATIVE; URINE MARIJUANA (THC) SCREEN UNCONFIRMED POSITIVE; URINE METHADONE SCREEN NEGATIVE; URINE PHENCYCLIDINE SCREEN NEGATIVE
[2018-04-09] MEDS ORDERED: KETOROLAC TROMETHAMINE 60 MG/2 ML SDV IM ONE (18:42)
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
== END 2018-04-09 18:50 | disposition home or self-care (01) ==
LOC: ER 16:44
DX: F41.9 Anxiety disorder, unspecified (principal); F17.210 Nicotine dependence, cigarettes, uncomplicated
CPT/HCPCS: 99283; 96372; 36415; 80307 ×4; 84443; 85025; 80053; 81001; 71101; J3490 ×2; J1885

== ENCOUNTER 2018-08-25 10:43 | Emergency (ER) | payer MEDICAID ==
[2018-08-25 11:49] LABS: ABSOLUTE EOSINOPHILS # (AUTO) 0.1 10^3/uL (0.0-0.6); ABSOLUTE LYMPHOCYTES (AUTO) 1.5 10^3/uL (0.5-4.7); ABSOLUTE MONOCYTES (AUTO) 0.6 10^3/uL (0.1-1.4); ABSOLUTE NEUT (AUTO) 4.5 10^3/uL (1.7-8.2); BASOPHILS % (AUTO) 0.1 % (0-2); EOSINOPHILS % (AUTO) 1.6 % (0-6); HEMATOCRIT 43.9 % (37.9-51.0); HEMOGLOBIN 15.2 g/dL (13.5-17.0); LYMPHOCYTES % (AUTO) 21.9 % (13-45); MEAN CORPUSCULAR HGB CONC 34.5 g/dL (32.0-36.0); MEAN CORPUSCULAR VOLUME 84 fl (80-97); MONOCYTES % (AUTO) 9.1 % (3-13); PLATELET COUNT 206 10^3/uL (150-450); RED BLOOD COUNT 5.24 10^6/uL (4.35-5.55); RED CELL DISTRIBUTION WIDTH 13.6 % (11.5-14.0); SEGMENTED NEUTROPHILS % (AUTO) 67.3 % (42-78); TOTAL CELLS COUNTED % (AUTO) 100 %; WHITE BLOOD COUNT 6.6 10^3/uL (4.0-10.5)
[2018-08-25 12:04] LABS: ALANINE AMINOTRANSFERASE 51 U/L (21-72); ALBUMIN 4.4 g/dL (3.5-5.0); ALKALINE PHOSPHATASE 47 U/L (38-126); ANION GAP 9 (5-19); ASPARTATE AMINO TRANSFERASE 33 U/L (17-59); BILIRUBIN,DIRECT 0.3 mg/dL (0.0-0.4); BILIRUBIN,TOTAL 0.8 mg/dL (0.2-1.3); BLOOD UREA NITROGEN 16 mg/dL (7-20); CALCIUM 9.8 mg/dL (8.4-10.2); CARBON DIOXIDE 28 mmol/L (22-30); CHLORIDE 104 mmol/L (98-107); GLUCOSE 111 mg/dL (75-110); POTASSIUM 4.1 mmol/L (3.6-5.0); SODIUM 141.4 mmol/L (137-145); TOTAL PROTEIN 6.9 g/dL (6.3-8.2)
[2018-08-25 12:06] LABS: ACETAMINOPHEN < 10 ug/mL (10-30); ALCOHOL < 10 mg/dL (NONE DETECTED); SALICYLATE < 1.0 mg/dL (2.0-20.0)
[2018-08-25 12:07] LABS: APPEARANCE,URINE SLIGHTLY-CLOUDY; BILIRUBIN,URINE NEGATIVE (NEGATIVE); GLUCOSE, URINE NEGATIVE (NEGATIVE); KETONES,URINE 20 mg/dL (NEGATIVE); LEUKOCYTE ESTERASE,URINE NEGATIVE (NEGATIVE); NITRITE,URINE NEGATIVE (NEGATIVE); PROTEIN,URINE NEGATIVE (NEGATIVE); URINE SPECIFIC GRAVITY 1.024; UROBILINOGEN,URINE NEGATIVE mg/dL (<2.0)
[2018-08-25 12:08] LABS: COLOR,URINE YELLOW
[2018-08-25 12:34] LABS: URINE AMPHETAMINES SCREEN NEGATIVE; URINE BARBITURATES SCREEN NEGATIVE; URINE BENZODIAZEPINES SCREEN NEGATIVE; URINE COCAINE SCREEN NEGATIVE; URINE MARIJUANA (THC) SCREEN UNCONFIRMED POSITIVE; URINE METHADONE SCREEN NEGATIVE; URINE PHENCYCLIDINE SCREEN NEGATIVE
--- NOTE | 2018-08-25 12:47 | ER Document Report ---
ED Psych Disorder / Suicide <WALESKA LEE - Last Filed: 08/26/18 08:43> - General TRAVEL OUTSIDE OF THE [place] IN LAST 30 DAYS: No <ANN ARREDONDO - Last Filed: 08/27/18 10:29> - General Chief Complaint: Suicidal Ideation Stated Complaint: SUICIDAL IDEATION Time Seen by Provider: 08/25/18 12:43 Primary Care Provider: [facility] [Outside] - Follow up in 3-5 days [facility] [Outside] - Follow up as needed ALETHA JUAREZ MD [Primary Care Provider] - Follow up as needed Notes: Patient says he is feeling depressed and feels like he wants to kill himself. He says he suffered from depression off and on for some time now. He says that his relationship with his is good at times and then seems to be very bad. He is employed and likes his line of work. Patient has never been under anyone's care for mental condition. At one time he was put on some medications for anxiety and for sleep, but currently is on no medicines. (ANN ARREDONDO) - Related Data Allergies/Adverse Reactions: No Known Allergies Allergy (Verified 08/25/18 10:45) Past Medical History - Social History Smoking Status: Current Every Day Smoker Chew tobacco use (# tins/day): No Frequency of alcohol use: None Drug Abuse: None Family History: Reviewed & Not Pertinent Patient has suicidal ideation: Yes Patient has homicidal ideation: No Neurological Medical History: Reports: Hx Migraine Musculoskeletal Medical History: Denies Hx Arthritis, Reports Hx Musculoskeletal Trauma Traumatic Medical History: Reports: Hx Fractures - Right hand right leg right arm right wrist Past Surgical History: Denies: Hx Abdominal Surgery - Immunizations Hx Diphtheria, Pertussis, Tetanus Vaccination: Yes <ANN ARREDONDO - Last Filed: 08/27/18 10:29> Review of Systems <ANN ARREDONDO - Last Filed: 08/27/18 10:29> - Review of Systems Notes: REVIEW OF SYSTEMS: CONSTITUTIONAL : Denies fever. EENT: Denies eye, ear, nose or mouth or throat pain or other symptoms. CARDIOVASCULAR: Denies chest pain. RESPIRATORY: Denies cough, chest congestion, or shortness of breath. GASTROINTESTINAL: Denies abdominal pain or nausea, vomiting, or diarrhea. GENITOURINARY: Denies difficulty or painful urinating, urinary frequency, blood in urine. MUSCULOSKELETAL: Denies back or neck pain. Denies joint pain or swelling. SKIN: Denies rash or skin lesions. NEUROLOGICAL: Denies LOC or altered mental status. Denies headache. Denies sensory loss or motor deficits. ALL OTHER SYSTEMS REVIEWED AND NEGATIVE. (ANN ARREDONDO) Physical Exam - Vital signs Interpretation: Normal <ANN ARREDONDO - Last Filed: 08/27/18 10:29> - Vital signs Vitals: Temp Pulse Resp BP Pulse Ox 98.1 F 78 18 151/94 H 97 08/25/18 10:50 08/25/18 10:50 08/25/18 10:50 08/25/18 10:50 08/25/18 10:50 Notes: PHYSICAL EXAMINATION: GENERAL: Well-appearing, in no acute distress. Vital signs are all normal. HEAD: Atraumatic, normocephalic. EYES: Pupils equal round and reactive to light, extraocular movements intact. ENT: oropharynx clear without exudates. Moist mucous membranes. NECK: Normal range of motion, supple. LUNGS: Breath sounds clear and equal bilaterally. HEART: Regular rate and rhythm without murmurs. ABDOMEN: Soft, nontender. No guarding or rebound. No masses. BACK: No tenderness throughout entire back. EXTREMITIES: Normal range of motion without pain. NEUROLOGICAL: Normal speech, normal gait. Normal sensory, motor, and reflex exams. Awake, alert, and oriented x3. Cranial nerves normal. PSYCH: Subdued and seems depressed. SKIN: Warm, dry, no rashes. (ANN ARREDONDO) Course - Laboratory Result Diagrams: 08/25/18 11:30 08/25/18 11:30 <WALESKA LEE - Last Filed: 08/26/18 08:43> - Laboratory Result Diagrams: 08/25/18 11:30 08/25/18 11:30 <ANN ARREDONDO - Last Filed: 08/27/18 10:29> - Re-evaluation Re-evalutation: 08/25/18 12:48 Lab studies all essentially normal. (ANN ARREDONDO) - Vital Signs Vital signs: Temp Pulse Resp BP Pulse Ox 97.4 F 68 18 141/74 H 100 08/26/18 09:05 08/26/18 09:05 08/26/18 09:05 08/26/18 09:05 08/26/18 09:05 - Laboratory Laboratory results interpreted by me: 08/25/18 08/25/18 11:30 11:30 Glucose 111 H Urine Ketones 20 H Salicylates < 1.0 L Acetaminophen < 10 L Discharge <JESUSWALESKA - Last Filed: 08/26/18 08:43> <ANN ARREDONDO - Last Filed: 08/27/18 10:29> - Discharge Clinical Impression: Depression, Suicidal ideation Condition: Stable Disposition: HOME, SELF-CARE Additional Instructions: You have been evaluated by both medical and behavioral health teams and have been deemed appropriate for discharge. You have been provided a prescription for Zyprexa 5mg twice daily and Cogentin 1mg daily; please take as directed. You are recommended to follow up with outpatient mental health services for medi cation management, individual therapy, and couples therapy if you and significant other would like to engage in relationship building. you have been provided a local resource list of area providers, including mobile crisis contact information. DEPRESSION: Your evaluation reveals that you have mental depression. While symptoms may be vague, they often include disturbance of sleep, fatigue, loss of appetite, and general loss of interest in life. While depression may be a side effect of drugs, or a reaction to a major change in your life, many cases have no known cause. If depression is acute, and related to a major loss in your life, you can expect it to clear completely with time. If you have been depressed a long time, are prone to repeated bouts of depression or low mood, or have been thinking of suicide, get help. Depression can be treated with anti-depressant medication and counselling. Long-term depression will often take a few weeks to clear, even with appropriate medication. Follow-up care is important. SUICIDAL IDEATION: Suicidal ideation is a common medical term for thoughts about suicide, which may be as detailed as a formulated plan, without the suicidal act itself. Although most people who undergo suicidal ideation do not commit suicide, some go on to make suicide attempts. The range of suicidal ideation varies greatly from fleeting to detailed planning, role playing, and unsuccessful attempts. While thoughts about suicide are common, most people do not carry out serious actions to commit suicide. Based upon your evaluation and discussion with you, we do not believe you are currently at risk to act upon your thoughts of suicide. You have agreed to return to the Emergency Department, at any time, if you feel inclined to act upon your suicidal thoughts. FOLLOW-UP CARE: If you have been referred to a physician for follow-up care, call the physicians office for an appointment as you were instructed or within the next two days. If you experience worsening or a significant change in your symptoms, notify the physician immediately or return to the Emergency Department at any time for re-evaluation. Prescriptions: Benztropine Mesylate [Cogentin 1 mg Tablet] 1 mg PO DAILY #7 tablet Olanzapine [Zyprexa 5 mg Tablet] 5 mg PO Q12 #14 tablet Referrals: ALETHA JUAREZ MD [Primary Care Provider] - Follow up as needed [facility] [Outside] - Follow up as needed [facility] [Outside] - Follow up in 3-5 days
--- NOTE | 2018-08-25 13:32 | PSYCHOLOGICAL NOTE ---
Psych Note - Psych Note Date seen by psych provider: 08/25/18 Time seen by psych provider: 12:30 - 1300 Psych Note: Reason for consult: Suicidal ideation Patient says he is feeling depressed and feels like he wants to kill himself. He says he suffered from depression off and on for some time now. Patient is alert and orientated to person, place, time and circumstance. Mood is dysphoric with slightly tearful affect. Patient endorses passive suicidal ideation i.e. no plans means or intent. Patient denies homicidal ideation. Delusions are absent behaviors congruent with an intact reality based presentation i.e. organized and linear thought process. Eye contact is poor. Conversational speech is tangential. Intellectual abilities appear to be within the average range. Attention and concentration are fair. Insight, judgment, impulse control are fair. Medication recommendations per [facility]'s contracted psychiatrist Dr. 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 This is a voluntary stay to restart medications and have time to destress. Patient endorses passive suicidal ideation i.e. no plans means or intent upon arrival and continues to deny current thoughts of harming to himself or others. Patient admits that marital discord has been his stressor. Medication recommendations have been provided and patient will be revaluated with probable discharge in the morning. Dr. Ayers was consulted and the care management this patient; attending physicians in agreement with recommendations and disposition.
[2018-08-25] MEDS: OLANZAPINE 5 MG TABLET PO SCH ×2 (14:18→18:05)
[2018-08-25] MEDS: BENZTROPINE MESYLATE 1 MG TABLET PO SCH (14:18)
--- NOTE | 2018-08-25 22:17 | EKG REPORT ---
SEVERITY:- NORMAL ECG - SINUS RHYTHM : Confirmed by: Heraclio Genao MD 25-Aug-2018 22:15:40
[2018-08-26] MEDS: OLANZAPINE 5 MG TABLET PO SCH (09:01)
[2018-08-26] MEDS: BENZTROPINE MESYLATE 1 MG TABLET PO SCH (09:01)
[2018-08-26 09:06] VITALS: BP 141/74
--- NOTE | 2018-08-26 09:43 | ER Document Report ---
Doctor's Note Notes: 08/26/18 09:42 Rounds: Patient feels better. Labs ok, VS normal. Patient is medically stable for transfer or discharge. Alex Bowers MD
--- NOTE | 2018-08-26 15:36 | PSYCHOLOGICAL NOTE ---
Psych Note - Psych Note Date seen by psych provider: 08/26/18 Time seen by psych provider: 07:30 Psych Note: Reason for consult: Suicidal ideation Checking conducted with patient. He reports he is feeling better and would appreciate a prescription for medication he received. He confirms that he would like to go to therapy and identifies that he has no concerns about returning home. Patient does report that he needs to really start thinking about his marriage as they seem to be continually having the same issues "over and over again." Patient's mood is euthymic with congruent affect. Patient denies current suicidal and homicidal Medication recommendations per [facility]'s contracted psychiatrist Dr. Jesús MODI are as follows Zyprexa 5 mg twice daily Cogentin 1 mg daily Diagnosis Marital discord 311 (3 2.9) unspecified depressive disorder Impression/Plan: Patient is cleared from acute psychiatric services. Patient denies any thoughts of wanting to harm himself or others. Patient was started on medication which he had identified helped him in the past, and confirms that he is feeling better today. Patient reports no concerns of returning home and agrees to follow-up with outpatient mental health services and both therapy and medication management. Patient was provided resources of local providers including mobile crisis contact information. Dr. Ayers was consulted and the care management this patient; attending physicians in agreement with recommendations and disposition.
== END 2018-08-26 09:46 | disposition home or self-care (01) ==
LOC: ER 10:43
DX: R45.851 Suicidal ideations (principal); F32.9 Major depressive disorder, single episode, unspecified; F17.200 Nicotine dependence, unspecified, uncomplicated; Z63.0 Problems in relationship with spouse or partner
CPT/HCPCS: 93005; 99285; 36415; 80307 ×4; 85025; 80053; 81001; 93010; J3490 ×4

== ENCOUNTER 2018-09-13 08:29 | Emergency (ER) | payer MEDICAID ==
[2018-09-13 08:56] LABS: ABSOLUTE EOSINOPHILS # (AUTO) 0.1 10^3/uL (0.0-0.6); ABSOLUTE LYMPHOCYTES (AUTO) 0.8 10^3/uL (0.5-4.7); ABSOLUTE MONOCYTES (AUTO) 0.5 10^3/uL (0.1-1.4); BASOPHILS % (AUTO) 0.5 % (0-2); EOSINOPHILS % (AUTO) 1.6 % (0-6); HEMATOCRIT 41.4 % (37.9-51.0); HEMOGLOBIN 14.4 g/dL (13.5-17.0); LYMPHOCYTES % (AUTO) 17.5 % (13-45); MEAN CORPUSCULAR HEMOGLOBIN 28.9 pg (27.0-33.4); MEAN CORPUSCULAR HGB CONC 34.9 g/dL (32.0-36.0); MEAN CORPUSCULAR VOLUME 83 fl (80-97); PLATELET COUNT 162 10^3/uL (150-450); RED CELL DISTRIBUTION WIDTH 13.5 % (11.5-14.0); SEGMENTED NEUTROPHILS % (AUTO) 69.4 % (42-78); TOTAL CELLS COUNTED % (AUTO) 100 %; WHITE BLOOD COUNT 4.4 10^3/uL (4.0-10.5)
[2018-09-13 09:21] LABS: ALANINE AMINOTRANSFERASE 58 U/L (21-72); ALBUMIN 3.5 g/dL (3.5-5.0); ALKALINE PHOSPHATASE 58 U/L (38-126); ANION GAP 9 (5-19); ASPARTATE AMINO TRANSFERASE 40 U/L (17-59); BILIRUBIN,DIRECT 0.2 mg/dL (0.0-0.4); BILIRUBIN,TOTAL 0.5 mg/dL (0.2-1.3); BLOOD UREA NITROGEN 16 mg/dL (7-20); CALCIUM 8.7 mg/dL (8.4-10.2); CARBON DIOXIDE 26 mmol/L (22-30); CHLORIDE 105 mmol/L (98-107); CREATINE KINASE 189 U/L (55-170); GLUCOSE 126 mg/dL (75-110); POTASSIUM 3.9 mmol/L (3.6-5.0); SODIUM 140.1 mmol/L (137-145); TOTAL PROTEIN 5.8 g/dL (6.3-8.2)
[2018-09-13 09:29] LABS: CREATINE KINASE MB 1.24 ng/mL (<4.55)
[2018-09-13 09:34] LABS: TROPONIN I < 0.012 ng/mL
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
[2018-09-13 10:22] VITALS: BP 154/94
--- NOTE | 2018-09-13 22:03 | EKG REPORT ---
SEVERITY:- NORMAL ECG - SINUS RHYTHM : Confirmed by: Jami Leslie 13-Sep-2018 22:02:43
== END 2018-09-13 10:22 | disposition home or self-care (01) ==
LOC: ER 08:29
DX: R07.89 Other chest pain (principal); X50.0XXA Overexertion from strenuous movement or load, initial encounter; R42 Dizziness and giddiness; R20.2 Paresthesia of skin; F17.210 Nicotine dependence, cigarettes, uncomplicated
CPT/HCPCS: 36415; 80053; 82550; 82553; 84484; 85025; 93005; 93010; 99285

== ENCOUNTER 2018-10-24 22:59 | Emergency (ER) | payer MEDICAID ==
--- NOTE | 2018-10-24 23:18 | ER Document Report ---
Addendum entered and electronically signed by ANN ARREDONDO MD 10/25/18 13:00: Discharge - Discharge Clinical Impression: Suicidal ideation, History of bipolar disorder Condition: Stable Disposition: HOME, SELF-CARE Additional Instructions: You have been evaluated by both medical and behavioral health providers while in the emergency department. You have been cleared from both acute medical and psychiatric services. You and significant other noted recent life stresses with increased frustration for both. One stress was no transportation which has now changed. You are being provided prescriptions for mood stabilization and impulse control. You should take these daily as prescribed until [facility] can see you for both medication management and therapy. Bipolar Disorder Bipolar disorder is also called manic-depressive disorder. Depression alternates with brain hyperactivity called flor. Each phase lasts from several days to a few weeks. We don't know exactly what causes bipolar disorder, but it's treatable. During the "manic phase," you may feel elated and energetic. You may have racing thoughts, rapid speech, increased activity, and grandiose ideas. During this time, you may not realize how poor your judgement is. Inappropriate spending, drug abuse, excessive alcohol use, marriage problems, and irresponsible sexual behavior are common during the manic phase. During the "depressive phase," you might feel depressed, guilty, worthless, fatigued, and unable to concentrate. You might have thoughts of suicide. Good treatments are available for bipolar disorder. [place] is a classic drug for bipolar disorder, and is still often useful. If the manic phase is very mild, an antidepressant alone can be prescribed. If the manic phase is very severe, an antipsychotic medicine (such as Haldol) may be needed. The treatment must be matched to your symptoms, so it's important to work closely with your psychiatric care provider. Contact your physician, the hospital emergency center, crisis line, or your counsellor if you are losing control or having self-destructive thoughts. SUICIDAL IDEATION: Suicidal ideation is a common medical term for thoughts about suicide, which may be as detailed as a formulated plan, without the suicidal act itself. Although most people who undergo suicidal ideation do not commit suicide, some go on to make suicide attempts. The range of suicidal ideation varies greatly from fleeting to detailed planning, role playing, and unsuccessful attempts. While thoughts about suicide are common, most people do not carry out serious actions to commit suicide. Based upon your evaluation and discussion with you, we do not believe you are currently at risk to act upon your thoughts of suicide. You have agreed to return to the Emergency Department, at any time, if you feel inclined to act upon your suicidal thoughts. FOLLOW-UP CARE: You are being provided prescriptions for Zyprexa 5MG twice a day for mood stabilization/impulse control and Cogentin 1MG daily which goes in combination with medications like Zyprexa. [facility] is involved in your care, are aware of discharge, and will arrange outpatient mental health services through their local agency. Significant other also included in plan of care. If you experience worsening or a significant change in your symptoms, notify the physician immediately, utilize mobile crisis or return to the Emergency Department at any time for re-evaluation. Prescriptions: Benztropine Mesylate [Cogentin 1 mg Tablet] 1 mg PO DAILY #15 tablet Olanzapine [Zyprexa 5 mg Tablet] 5 mg PO BID #30 tablet Referrals: [facility] [Outside] - Follow up as needed [facility] [Outside] - Follow up as needed ALETHA JUAREZ MD [Primary Care Provider] - Follow up as needed Addendum entered and electronically signed by ROSA CESAR LPC 10/25/18 12: 45: Discharge - Discharge Clinical Impression: Suicidal ideation, History of bipolar disorder Condition: Stable Disposition: HOME, SELF-CARE Additional Instructions: You have been evaluated by both medical and behavioral health providers while in the emergency department. You have been cleared from both acute medical and psychiatric services. You and significant other noted recent life stresses with increased frustration for both. One stress was no transportation which has now changed. You are being provided prescriptions for mood stabilization and impulse control. You should take these daily as prescribed until [facility] can see you for both medication management and therapy. Bipolar Disorder Bipolar disorder is also called manic-depressive disorder. Depression alternates with brain hyperactivity called flor. Each phase lasts from several days to a few weeks. We don't know exactly what causes bipolar disorder, but it's treatable. During the "manic phase," you may feel elated and energetic. You may have racing thoughts, rapid speech, increased activity, and grandiose ideas. During this time, you may not realize how poor your judgement is. Inappropriate spending, drug abuse, excessive alcohol use, marriage problems, and irresponsible sexual behavior are common during the manic phase. During the "depressive phase," you might feel depressed, guilty, worthless, fatigued, and unable to concentrate. You might have thoughts of suicide. Good treatments are available for bipolar disorder. [place] is a classic drug for bipolar disorder, and is still often useful. If the manic phase is very mild, an antidepressant alone can be prescribed. If the manic phase is very severe, an antipsychotic medicine (such as Haldol) may be needed. The treatment must be matched to your symptoms, so it's important to work closely with your psychiatric care provider. Contact your physician, the hospital emergency center, crisis line, or your counsellor if you are losing control or having self-destructive thoughts. SUICIDAL IDEATION: Suicidal ideation is a common medical term for thoughts about suicide, which may be as detailed as a formulated plan, without the suicidal act itself. Although most people who undergo suicidal ideation do not commit suicide, some go on to make suicide attempts. The range of suicidal ideation varies greatly from fleeting to detailed planning, role playing, and unsuccessful attempts. While thoughts about suicide are common, most people do not carry out serious actions to commit suicide. Based upon your evaluation and discussion with you, we do not believe you are currently at risk to act upon your thoughts of suicide. You have agreed to return to the Emergency Department, at any time, if you feel inclined to act upon your suicidal thoughts. FOLLOW-UP CARE: You are being provided prescriptions for Zyprexa 5MG twice a day for mood stabilization/impulse control and Cogentin 1MG daily which goes in combination with medications like Zyprexa. [facility] is involved in your care, are aware of discharge, and will arrange outpatient mental health services through their local agency. Significant other also included in plan of care. If you experience worsening or a significant change in your symptoms, notify the physician immediately, utilize mobile crisis or return to the Emergency Department at any time for re-evaluation. Referrals: ALETHA JUAREZ MD [Primary Care Provider] - Follow up as needed [facility] [Outside] - Follow up as needed [facility] [Outside] - Follow up as needed Original Note: ED General - General Stated Complaint: IVC Time Seen by Provider: 10/24/18 23:17 Primary Care Provider: ALETHA JUAREZ MD [Primary Care Provider] - Follow up as needed TRAVEL OUTSIDE OF THE [place] IN LAST 30 DAYS: No - HPI Patient complains to provider of: Suicidal ideation Notes: Patient presents under involuntary commitment paperwork. Patient was having an argument with his . Patient threatened to kill himself. Patient was in a walking in traffic. He was found by police near dizziness secondary walking in traffic. Patient continues to endorse suicidal ideation. Denies all the p hysical complaints - Related Data Allergies/Adverse Reactions: No Known Allergies Allergy (Verified 08/25/18 10:45) Past Medical History - Social History Smoking Status: Unknown if Ever Smoked Family History: Reviewed & Not Pertinent Neurological Medical History: Reports: Hx Migraine. Denies: Hx Cerebrovascular Accident, Hx Seizures Renal/ Medical History: Denies: Hx Peritoneal Dialysis Musculoskeletal Medical History: Denies Hx Arthritis, Reports Hx Musculoskeletal Trauma Traumatic Medical History: Reports: Hx Fractures - Right hand right leg right arm right wrist Past Surgical History: Denies: Hx Abdominal Surgery - Immunizations Hx Diphtheria, Pertussis, Tetanus Vaccination: Yes Review of Systems - Review of Systems Notes: REVIEW OF SYSTEMS: CONSTITUTIONAL: -fevers, -chills EENT: -eye pain, -difficulty swallowing, -nasal congestion CARDIOVASCULAR: -chest pain, -syncope. RESPIRATORY: -cough, -SOB GASTROINTESTINAL: -abdominal pain, -nausea, -vomiting, -diarrhea GENITOURINARY: -dysuria, -hematuria MUSCULOSKELETAL: -back pain, -neck pain SKIN: -rash or skin lesions. HEMATOLOGIC: -easy bruising or bleeding. LYMPHATIC: -swollen, enlarged glands. NEUROLOGICAL: -altered mental status or loss of consciousness, -headache, - neurologic symptoms PSYCHIATRIC: -anxiety, + depression, positive suicidal ideation ALL OTHER SYSTEMS REVIEWED AND NEGATIVE. Physical Exam - Vital signs Vitals: Temp Pulse Resp BP Pulse Ox 97.8 F 60 17 140/90 H 100 10/24/18 23:23 10/24/18 23:23 10/24/18 23:23 10/24/18 23:23 10/24/18 23:23 - Notes Notes: PHYSICAL EXAMINATION: GENERAL: Well-appearing, well-nourished and in no acute distress. HEAD: Atraumatic, normocephalic. EYES: Pupils equal round and reactive to light, extraocular movements intact, sclera anicteric, conjunctiva are normal. ENT: nares patent, oropharynx clear without exudates. Moist mucous membranes. NECK: Normal range of motion, supple without lymphadenopathy LUNGS: Breath sounds clear to auscultation bilaterally and equal. No wheezes rales or rhonchi. HEART: Regular rate and rhythm without murmurs ABDOMEN: Soft, nontender, normoactive bowel sounds. No guarding, no rebound. No masses appreciated. EXTREMITIES: Normal range of motion, no pitting or edema. No cyanosis. NEUROLOGICAL: Cranial nerves grossly intact. Normal speech, normal gait. Normal sensory and motor exams. PSYCH: depressed mood SKIN: Warm, Dry, normal turgor, no rashes or lesions noted. Course - Re-evaluation Re-evalutation: 10/25/18 01:37 -year-old male presents with saddle ideation. Patient's extensive lab work shows no vital signs within normal limits. Patient presents under involuntary commitment paperwork. Will be seen by our psychology team in the morning. - Vital Signs Vital signs: Temp Pulse Resp BP Pulse Ox 97.8 F 60 17 140/90 H 100 10/24/18 23:23 10/24/18 23:23 10/24/18 23:23 10/24/18 23:23 10/24/18 23:23 - Laboratory Result Diagrams: 10/24/18 23:15 10/24/18 23:15 Laboratory results interpreted by me: 10/24/18 10/24/18 10/24/18 23:15 23:15 23:15 RDW 14.2 H Urine Ketones 20 H Urine Urobilinogen 2.0 H Salicylates < 1.0 L Acetaminophen < 10 L Discharge - Discharge Clinical Impression: Suicidal ideation Condition: Stable Disposition: PSYCH HOSP/UNIT Referrals: ALETHA JUAREZ MD [Primary Care Provider] - Follow up as needed
[2018-10-24 23:30] LABS: APPEARANCE,URINE SLIGHTLY-CLOUDY; BILIRUBIN,URINE NEGATIVE (NEGATIVE); COLOR,URINE AMBER; GLUCOSE, URINE NEGATIVE (NEGATIVE); KETONES,URINE 20 mg/dL (NEGATIVE); LEUKOCYTE ESTERASE,URINE NEGATIVE (NEGATIVE); NITRITE,URINE NEGATIVE (NEGATIVE); PROTEIN,URINE NEGATIVE (NEGATIVE); URINE SPECIFIC GRAVITY 1.024
[2018-10-24 23:38] LABS: ALBUMIN 4.1 g/dL (3.5-5.0); ALKALINE PHOSPHATASE 48 U/L (38-126); ANION GAP 8 (5-19); ASPARTATE AMINO TRANSFERASE 36 U/L (17-59); BILIRUBIN,DIRECT 0.2 mg/dL (0.0-0.4); BILIRUBIN,TOTAL 1.2 mg/dL (0.2-1.3); BLOOD UREA NITROGEN 17 mg/dL (7-20); CALCIUM 9.5 mg/dL (8.4-10.2); CARBON DIOXIDE 30 mmol/L (22-30); CHLORIDE 101 mmol/L (98-107); GLUCOSE 92 mg/dL (75-110); POTASSIUM 3.9 mmol/L (3.6-5.0); TOTAL PROTEIN 6.4 g/dL (6.3-8.2)
[2018-10-24 23:40] LABS: ACETAMINOPHEN < 10 ug/mL (10-30); ALCOHOL < 10 mg/dL (NONE DETECTED); SALICYLATE < 1.0 mg/dL (2.0-20.0)
[2018-10-24 23:42] LABS: ABSOLUTE EOSINOPHILS # (AUTO) 0.1 10^3/uL (0.0-0.6); ABSOLUTE MONOCYTES (AUTO) 0.6 10^3/uL (0.1-1.4); ABSOLUTE NEUT (AUTO) 3.1 10^3/uL (1.7-8.2); BASOPHILS % (AUTO) 0.2 % (0-2); EOSINOPHILS % (AUTO) 1.7 % (0-6); HEMATOCRIT 44.1 % (37.9-51.0); HEMOGLOBIN 15.1 g/dL (13.5-17.0); LYMPHOCYTES % (AUTO) 34.1 % (13-45); MEAN CORPUSCULAR HEMOGLOBIN 28.9 pg (27.0-33.4); MEAN CORPUSCULAR HGB CONC 34.2 g/dL (32.0-36.0); MEAN CORPUSCULAR VOLUME 84 fl (80-97); MONOCYTES % (AUTO) 9.5 % (3-13); PLATELET COUNT 185 10^3/uL (150-450); RED BLOOD COUNT 5.22 10^6/uL (4.35-5.55); RED CELL DISTRIBUTION WIDTH 14.2 % (11.5-14.0); SEGMENTED NEUTROPHILS % (AUTO) 54.5 % (42-78); TOTAL CELLS COUNTED % (AUTO) 100 %; WHITE BLOOD COUNT 5.8 10^3/uL (4.0-10.5)
[2018-10-24 23:43] LABS: URINE AMPHETAMINES SCREEN NEGATIVE; URINE BARBITURATES SCREEN NEGATIVE; URINE BENZODIAZEPINES SCREEN NEGATIVE; URINE COCAINE SCREEN NEGATIVE; URINE MARIJUANA (THC) SCREEN UNCONFIRMED POSITIVE; URINE METHADONE SCREEN NEGATIVE; URINE PHENCYCLIDINE SCREEN NEGATIVE
--- NOTE | 2018-10-25 07:40 | EKG REPORT ---
SEVERITY:- NORMAL ECG - SINUS RHYTHM : Confirmed by: Heraclio Genao MD 25-Oct-2018 07:38:58
--- NOTE | 2018-10-25 10:29 | ER Document Report ---
Doctor's Note Notes: 10/25/18 10:28 Rounds: Chart reviewed and patient interviewed. Patient was evaluated in the emergency department for suicidal thoughts. Patient says that he was just upset last night. Does not feel suicidal today. Vital signs are all normal. Lab studies were negative except for positive marijuana on his drug screen. Patient appears to be medically stable for transfer or discharge. Lynnette Bowers MD
[2018-10-25] MEDS ORDERED: BENZTROPINE MESYLATE 1 MG TABLET PO ONE (13:00)
[2018-10-25] MEDS ORDERED: OLANZAPINE 5 MG TABLET PO ONE (13:00)
[2018-10-25 14:16] VITALS: BP 131/88
== END 2018-10-25 14:16 | disposition home or self-care (01) ==
LOC: ER 22:59
DX: R45.851 Suicidal ideations (principal); F32.9 Major depressive disorder, single episode, unspecified; Z86.59 Personal history of other mental and behavioral disorders
CPT/HCPCS: 93005; 99285; 36415; 80307 ×4; 85025; 80053; 81001; 93010; J3490 ×2

== ENCOUNTER 2019-04-01 14:27 | Emergency (ER) | payer MEDICAID, OTHER ==
[2019-04-01 14:41] LABS: ABSOLUTE EOSINOPHILS # (AUTO) 0.1 10^3/uL (0.0-0.6); ABSOLUTE LYMPHOCYTES (AUTO) 1.1 10^3/uL (0.5-4.7); ABSOLUTE MONOCYTES (AUTO) 0.7 10^3/uL (0.1-1.4); ABSOLUTE NEUT (AUTO) 6.9 10^3/uL (1.7-8.2); BASOPHILS % (AUTO) 0.5 % (0-2); EOSINOPHILS % (AUTO) 0.9 % (0-6); HEMOGLOBIN 15.5 g/dL (13.5-17.0); LYMPHOCYTES % (AUTO) 12.6 % (13-45); MEAN CORPUSCULAR HEMOGLOBIN 29.8 pg (27.0-33.4); MEAN CORPUSCULAR HGB CONC 34.5 g/dL (32.0-36.0); MEAN CORPUSCULAR VOLUME 86 fl (80-97); MONOCYTES % (AUTO) 7.5 % (3-13); PLATELET COUNT 203 10^3/uL (150-450); RED BLOOD COUNT 5.21 10^6/uL (4.35-5.55); RED CELL DISTRIBUTION WIDTH 14.5 % (11.5-14.0); SEGMENTED NEUTROPHILS % (AUTO) 78.5 % (42-78); TOTAL CELLS COUNTED % (AUTO) 100 %; WHITE BLOOD COUNT 8.9 10^3/uL (4.0-10.5)
[2019-04-01 15:34] LABS: ACETAMINOPHEN < 10 ug/mL (10-30); ALBUMIN 3.6 g/dL (3.5-5.0); ALCOHOL < 10 mg/dL (NONE DETECTED); ALKALINE PHOSPHATASE 44 U/L (38-126); ANION GAP 5 (5-19); ASPARTATE AMINO TRANSFERASE 25 U/L (17-59); BILIRUBIN,DIRECT 0.2 mg/dL (0.0-0.4); BILIRUBIN,TOTAL 0.5 mg/dL (0.2-1.3); BLOOD UREA NITROGEN 15 mg/dL (7-20); CALCIUM 8.9 mg/dL (8.4-10.2); CARBON DIOXIDE 31 mmol/L (22-30); CHLORIDE 103 mmol/L (98-107); GLUCOSE 97 mg/dL (75-110); POTASSIUM 4.4 mmol/L (3.6-5.0); SALICYLATE < 1.0 mg/dL (2.0-20.0)
--- NOTE | 2019-04-01 16:18 | ER Document Report ---
ED General - General Chief Complaint: Overdose Stated Complaint: POSSIBLE OVERDOSE Time Seen by Provider: 04/01/19 16:13 Primary Care Provider: ALETHA JUAREZ MD [Primary Care Provider] - Follow up as needed Mode of Arrival: Medic Information source: Patient, Emergency Med Personnel Cannot obtain history due to: Altered mental status TRAVEL OUTSIDE OF THE [place] IN LAST 30 DAYS: No - HPI Onset: Other - today Onset/Duration: Sudden Quality of pain: No pain Severity: Moderate Pain Level: Denies Associated symptoms: Nausea, Other - altered mental status Exacerbated by: Denies Relieved by: Denies Similar symptoms previously: Yes - patient has been IVCed before Recently seen / treated by doctor: Yes - seen in the ER in [place] as an IVC Notes: 38 year old male with a history of 38 year old male with a history of Anxiety and Depression here for evaluation after an overdose. The patient apparently took Ativan and [place] in an attempt to kill himself. See nurse notes for details on quantities. Patient is sleeping in his ER bed and unable to be woken up during my questioning so my history was obtained from nursing staff who had spoken with the patient prior to him falling alseep and who had spoken with EMS. - Related Data Allergies/Adverse Reactions: No Known Allergies Allergy (Verified 04/01/19 14:39) Past Medical History - Social History Smoking Status: Current Every Day Smoker Frequency of alcohol use: None Drug Abuse: None Lives with: Family Family History: Reviewed & Not Pertinent Patient has suicidal ideation: Yes Patient has homicidal ideation: No - Past Medical History Cardiac Medical History: Reports: None Pulmonary Medical History: Reports: None EENT Medical History: Reports: None Neurological Medical History: Reports: Hx Migraine. Denies: Hx Cerebrovascular Accident, Hx Seizures Renal/ Medical History: Reports: None. Denies: Hx Peritoneal Dialysis GI Medical History: Reports: None Musculoskeletal Medical History: Denies Hx Arthritis, Reports Hx Musculoskeletal Trauma Skin Medical History: Reports None Psychiatric Medical History: Reports: Hx Anxiety, Hx Bipolar Disorder - type 1, Hx Depression Traumatic Medical History: Reports: Hx Fractures - Right hand right leg right arm right wrist Infectious Medical History: Reports: None Past Surgical History: Reports: None. Denies: Hx Abdominal Surgery - Immunizations Hx Diphtheria, Pertussis, Tetanus Vaccination: Yes Review of Systems - Review of Systems Constitutional: Other - altered mental status EENT: No symptoms reported Cardiovascular: No symptoms reported Respiratory: No symptoms reported Gastrointestinal: No symptoms reported Genitourinary: No symptoms reported Male Genitourinary: No symptoms reported Musculoskeletal: No symptoms reported Skin: No symptoms reported Hematologic/Lymphatic: No symptoms reported Neurological/Psychological: Suicidal ideation, Other - Altered mental status Physical Exam - Vital signs Vitals: Temp Resp BP Pulse Ox 98.5 F 19 124/78 98 04/01/19 14:32 04/01/19 14:32 04/01/19 14:32 04/01/19 14:32 - Notes Notes: GENERAL: Well-appearing, well-nourished and in no acute distress. HEAD: Atraumatic, normocephalic. EYES: Pupils equal round and reactive to light, extraocular movements intact, sclera anicteric, conjunctiva are normal. ENT: TMs normal, nares patent, oropharynx clear without exudates. Moist mucous membranes. NECK: Normal range of motion, supple without lymphadenopathy or JVD. LUNGS: Breath sounds clear to auscultation bilaterally and equal. No wheezes rales or rhonchi. HEART: Regular rate and rhythm without murmurs, rubs or gallops. ABDOMEN: Soft, nontender, normoactive bowel sounds. No guarding, no rebound. No masses appreciated. EXTREMITIES: Normal range of motion, no pitting or edema. No clubbing or cyanosis. NEUROLOGICAL: Patient is sleeping and will not wake up to my verbal or physical stimuli. PSYCH: Normal mood, normal affect. SKIN: Warm, Dry, normal turgor, no rashes or lesions noted. Course - Re-evaluation Re-evalutation: 04/01/19 21:09 The patient is more awake now and he is able to converse with me. The patient does not known how much [place] he ingested. Poison control is involved in the case and they would like [place] Levels to be drawn every 3 hours until his [place] Level plateaus. His first level was 1.2 and repeat was 1.6. Patient feels dizzy and has been having diarrhea in the ER. The patient was not medically cleared at the time of my shift change so he was signed out to the oncoming ER doctor. - Vital Signs Vital signs: Temp Pulse Resp BP Pulse Ox 97.5 F 17 113/78 96 04/01/19 20:33 04/01/19 18:01 04/01/19 18:01 04/01/19 18:01 - Laboratory Result Diagrams: 04/01/19 13:58 04/01/19 19:25 Laboratory results interpreted by me: 04/01/19 04/01/19 04/01/19 13:58 14:50 14:50 RDW 14.5 H Lymph % (Auto) 12.6 L Seg Neutrophils % 78.5 H Carbon Dioxide 31 H Anion Gap Total Protein 6.0 L Salicylates < 1.0 L Acetaminophen < 10 L [place] 1.4 H 04/01/19 19:25 RDW Lymph % (Auto) Seg Neutrophils % Carbon Dioxide Anion Gap 3 L Total Protein Salicylates Acetaminophen < 10 L [place] 1.6 H* - EKG Interpretation by Me EKG shows normal: Sinus rhythm, [place], Intervals, QRS Complexes, ST-T Waves Rate: Normal Rhythm: NSR Discharge - Discharge Clinical Impression: Suicidal behavior Qualifiers: Attempted self-injury: with attempted self-injury Qualified Code(s): T14.91XA - Suicide attempt, initial encounter [place] overdose Qualifiers: Encounter type: initial encounter Injury intent: intentional self-harm Qualif ied Code(s): T56.892A - Toxic effect of other metals, intentional self-harm, initial encounter Condition: Stable Disposition: PSYCH HOSP/UNIT Referrals: ALETHA JUAREZ MD [Primary Care Provider] - Follow up as needed
[2019-04-01 16:21] LABS: APPEARANCE,URINE CLEAR; BILIRUBIN,URINE NEGATIVE (NEGATIVE); COLOR,URINE YELLOW; GLUCOSE, URINE NEGATIVE (NEGATIVE); KETONES,URINE NEGATIVE (NEGATIVE); LEUKOCYTE ESTERASE,URINE NEGATIVE (NEGATIVE); NITRITE,URINE NEGATIVE (NEGATIVE); PROTEIN,URINE NEGATIVE (NEGATIVE); URINE SPECIFIC GRAVITY 1.012; UROBILINOGEN,URINE NEGATIVE mg/dL (<2.0)
[2019-04-01 16:38] LABS: URINE AMPHETAMINES SCREEN NEGATIVE; URINE BARBITURATES SCREEN NEGATIVE; URINE BENZODIAZEPINES SCREEN NEGATIVE; URINE COCAINE SCREEN NEGATIVE; URINE METHADONE SCREEN NEGATIVE; URINE PHENCYCLIDINE SCREEN NEGATIVE
[2019-04-01 16:39] LABS: URINE MARIJUANA (THC) SCREEN UNCONFIRMED POSITIVE
[2019-04-01] MEDS ORDERED: NORMAL SALINE 1000 ML 1,000 ML IV ONE ×2 (17:17→17:20)
[2019-04-01 19:54] LABS: BLOOD UREA NITROGEN 13 mg/dL (7-20); CALCIUM 8.9 mg/dL (8.4-10.2); CHLORIDE 106 mmol/L (98-107); GLUCOSE 89 mg/dL (75-110); POTASSIUM 4.1 mmol/L (3.6-5.0)
[2019-04-01 19:56] LABS: ACETAMINOPHEN < 10 ug/mL (10-30)
[2019-04-01 19:59] LABS: CARBON DIOXIDE 30 mmol/L (22-30)
[2019-04-01 20:09] LABS: ANION GAP 3 (5-19)
[2019-04-01 20:10] LABS: LITHIUM 1.6 mEq/L (0.6-1.2)
--- NOTE | 2019-04-01 20:44 | EKG REPORT ---
SEVERITY:- NORMAL ECG - SINUS RHYTHM : Confirmed by: Jami Leslie 01-Apr-2019 20:42:49
--- NOTE | 2019-04-01 20:44 | EKG REPORT ---
SEVERITY:- NORMAL ECG - SINUS RHYTHM : Confirmed by: Jami Leslie 01-Apr-2019 20:42:44
[2019-04-01 22:47] LABS: ALBUMIN 2.9 g/dL (3.5-5.0); ALKALINE PHOSPHATASE 32 U/L (38-126); ASPARTATE AMINO TRANSFERASE 22 U/L (17-59); BILIRUBIN,DIRECT 0.1 mg/dL (0.0-0.4); BILIRUBIN,TOTAL 0.6 mg/dL (0.2-1.3); BLOOD UREA NITROGEN 13 mg/dL (7-20); CALCIUM 8.6 mg/dL (8.4-10.2); CARBON DIOXIDE 30 mmol/L (22-30); GLUCOSE 90 mg/dL (75-110); LITHIUM 1.4 mEq/L (0.6-1.2); POTASSIUM 4.3 mmol/L (3.6-5.0); TOTAL PROTEIN 5.3 g/dL (6.3-8.2)
[2019-04-01 22:52] LABS: CHLORIDE 108 mmol/L (98-107)
[2019-04-01 22:57] LABS: ANION GAP 1 (5-19)
--- NOTE | 2019-04-02 00:17 | EKG REPORT ---
SEVERITY:- NORMAL ECG - SINUS RHYTHM : Confirmed by: Jami Leslie 02-Apr-2019 00:16:50
[2019-04-02 02:03] LABS: ALBUMIN 2.8 g/dL (3.5-5.0); ALKALINE PHOSPHATASE 35 U/L (38-126); ASPARTATE AMINO TRANSFERASE 22 U/L (17-59); BILIRUBIN,DIRECT 0.2 mg/dL (0.0-0.4); BILIRUBIN,TOTAL 0.8 mg/dL (0.2-1.3); BLOOD UREA NITROGEN 12 mg/dL (7-20); CALCIUM 8.6 mg/dL (8.4-10.2); CARBON DIOXIDE 27 mmol/L (22-30); CHLORIDE 109 mmol/L (98-107); GLUCOSE 89 mg/dL (75-110); LITHIUM 1.1 mEq/L (0.6-1.2); POTASSIUM 4.1 mmol/L (3.6-5.0)
[2019-04-02 02:13] LABS: ANION GAP 3 (5-19)
[2019-04-02 05:34] LABS: ALBUMIN 3.1 g/dL (3.5-5.0); ALKALINE PHOSPHATASE 36 U/L (38-126); ANION GAP 6 (5-19); ASPARTATE AMINO TRANSFERASE 22 U/L (17-59); BILIRUBIN,DIRECT 0.1 mg/dL (0.0-0.4); BILIRUBIN,TOTAL 0.6 mg/dL (0.2-1.3); BLOOD UREA NITROGEN 12 mg/dL (7-20); CALCIUM 8.8 mg/dL (8.4-10.2); CARBON DIOXIDE 27 mmol/L (22-30); CHLORIDE 106 mmol/L (98-107); GLUCOSE 114 mg/dL (75-110); POTASSIUM 3.8 mmol/L (3.6-5.0); TOTAL PROTEIN 5.5 g/dL (6.3-8.2)
[2019-04-02 08:25] LABS: ALKALINE PHOSPHATASE 39 U/L (38-126); ASPARTATE AMINO TRANSFERASE 20 U/L (17-59); BILIRUBIN,DIRECT 0.1 mg/dL (0.0-0.4); BILIRUBIN,TOTAL 0.6 mg/dL (0.2-1.3); BLOOD UREA NITROGEN 11 mg/dL (7-20); CALCIUM 8.8 mg/dL (8.4-10.2); CARBON DIOXIDE 28 mmol/L (22-30); GLUCOSE 94 mg/dL (75-110); POTASSIUM 4.2 mmol/L (3.6-5.0); TOTAL PROTEIN 5.4 g/dL (6.3-8.2)
[2019-04-02 08:30] LABS: CHLORIDE 107 mmol/L (98-107)
[2019-04-02 08:31] LABS: ANION GAP 3 (5-19)
--- NOTE | 2019-04-02 11:34 | ER Document Report ---
Doctor's Note Notes: 04/02/19 11:33 I spoken with psychiatry about the patient. They have yet to formally evaluate him but are familiar with the patient. Supposedly was brought in for lithium and Ativan overdose last night. Apparently patient and his have been having issues. Psychiatry has spoken to the . They have indicated they will likely place a 24-hour IVC on the patient. They will have medication recommendations shortly. I have spoken with the patient. He states that he only took a few extra of his lithium. His lithium levels have normalized. He has no physical complaints at this time. Awaiting psychiatric evaluation
[2019-04-02] MEDS ORDERED: ACETAMINOPHEN 325 MG TABLET PO ONE (22:09)
--- NOTE | 2019-04-03 09:28 | PSYCHOLOGICAL NOTE ---
Psych Note - Psych Note Date seen by psych provider: 04/02/19 Time seen by psych provider: 09:40 Psych Note: Pt states he took about 24 300 mg of lithium and 20 of 1 mg ativan PO. Pt admits he was trying to commit suicide due to relation problems at home. Pt states his is leaving him if he doesn't get better. Patient spoke with [facility] and Dr. Ayers. [facility] also spoke at length with patient's .
--- NOTE | 2019-04-03 10:19 | ER Document Report ---
Doctor's Note Notes: 04/03/19 10:19 Have spoken with the psychiatric team, they have tentatively planned that the patient will be discharged home today. He is not suicidal or homicidal at this time. He is awake alert answers questions appropriately. He is on the phone currently at the nurses station in no distress
[2019-04-03 14:01] VITALS: BP 138/86
--- NOTE | 2019-04-03 14:02 | PSYCHOLOGICAL NOTE ---
Psych Note - Psych Note Date seen by psych provider: 04/03/19 Time seen by psych provider: 07:10 Psych Note: Reason for Consult: OD via prescription medication. Patient states he took about 24, 300 mg of [place] and 20, 1MG Ativan. Patient states he attempted suicide to do relationship issues with his spouse. Patient is known to behavioral health team. Patient was last seen by behavioral health on 03/08/2019. Patient has a history of chronic suicidal ideation during times of increased stress. Check in on patient conducted. Patient states he is "good." Patient states he was informed by a nurse that he was being transferred to [facility]. Clinician stated that the plan is probable discharge today. Patient states his plan is to return to his home in [place], and then link up with [facility] for mental health services. Patient had appointment with [facility] yesterday. Clinician contacted spouse to advise of discharge and arrange transportation. Spouse asked to speak with clinician prior to discharge. Clinician provided with psychoeducation regarding setting healthy boundaries, healthy communication techniques, and self-care. Provided patient psychoeducation regarding healthy communication, stress tolerance skills, and engagement with mental health services to learn healthy coping skills versus destructive coping skills. Reinforced destructive behaviors push people away. Patient expressed a desire to "be better." Patient expressed some frustration w ith his access to power tools removed, however patient states he understands the reasoning. Patient denies suicidal and homicidal ideations. Impression/Plan: Patient is recommended for rescind of IVC and is cleared from acute psychiatric services. Patient denies suicidal and homicidal ideations. There is no observed behavior that suggests patient is responding to internal stimuli. Patient has a history of engaging in impulsive behaviors and gestures as a means to manipulate others. Spouse has agreed to be responsible for increased observation for emotional distress, medication management and administration, assisting with scheduling and transportation to follow-up mental health services, and removing weapons and other hazards from the home. Patient and spouse make contact with [facility] prior to discharge to make them aware of discharge and to schedule follow-up mental health services, however was informed by [facility] that the agency would not be able to facilitate the clinical contact hours requested. Patient and spouse contacted [facility] to initiate mental health services. Plan is for patient to follow up with [facility]. Dr. Ayers was consulted on the care and management of this patient; attending physician is in agreement with recommendations and disposition.
== END 2019-04-03 14:00 | disposition home or self-care (01) ==
LOC: ER 14:27
DX: T42.4X2A Poisoning by benzodiazepines, intentional self-harm, initial encounter (principal); T56.892A Toxic effect of other metals, intentional self-harm, initial encounter; F32.9 Major depressive disorder, single episode, unspecified; F41.9 Anxiety disorder, unspecified; R11.0 Nausea; F17.200 Nicotine dependence, unspecified, uncomplicated; R42 Dizziness and giddiness; R19.7 Diarrhea, unspecified
CPT/HCPCS: 93005; 99285; 96360; 96361; 36415; 80307 ×4; 80178; 83735; 85025; 87070; 80053; 81001; 93010; J3490; J7030